=== PATIENT | male | born 1965 | race Asian ===

== ENCOUNTER 2018-02-25 08:37 | Observation (INO) | payer OTHER ==
[~2018-02-25] VITALS: Ht 154.9 cm; Wt 60.8 kg
[2018-02-25 08:58] LABS: ABSOLUTE BASOPHILS 0.1 thou/uL (0.0-0.2); ABSOLUTE EOSINOPHILS 0.1 thou/uL (0.0-0.7); ABSOLUTE LYMPHOCYTES 1.4 thou/uL (0.8-5.3); ABSOLUTE MONOCYTES 0.6 thou/uL (0.0-1.2); ABSOLUTE NEUTROPHILS 4.2 thou/uL (1.6-8.1); BASOPHILS 0.9 %; EOSINOPHILS 1.6 %; HEMOGLOBIN 12.8 gm/dL (14.0-18.0); MCH 29.6 pg (26.0-34.0); MCHC 32.7 g/dL (28.0-37.0); MCV 90.3 fL (80.0-100.0); MPV 6.9 fl. (7.2-11.1); NUCLEATED RBCS 0 /100WBC; PLATELET COUNT* 242 thou/uL (150-400); POLYS 66.5 %; RBC 4.32 mil/uL (4.50-6.00); RDW-CV 15.7 % (10.5-14.5); WBC 6.4 thou/uL (4.0-11.0)
[2018-02-25] MEDS ORDERED: ASPIR 8181 MG PO (09:00)
[2018-02-25] MEDS ORDERED: LIPITOR80 MG PO (09:00)
[2018-02-25] MEDS ORDERED: CARVEDILOL3.125 MG PO (09:00)
[2018-02-25] MEDS ORDERED: PLAVIX 75 MG TA75 M1 PO (09:00)
[2018-02-25] MEDS ORDERED: LISINOPRIL2.5 MG PO (09:01)
[2018-02-25 09:09] LABS: APTT 27.1 Seconds (25.0-31.3)
[2018-02-25 09:14] LABS: CALCIUM 9.1 mg/dL (8.5-10.1); CREATININE 1.1 mg/dL (0.6-1.3)
[2018-02-25 09:25] LABS: ALBUMIN 3.6 g/dL (3.4-5.0); CK-MB MASS 1.6 ng/mL (<0.5-3.6); TOTAL BILIRUBIN 0.5 mg/dL (<0.1-1.0); TOTAL PROTEIN 7.4 g/dL (6.4-8.2); TROPONIN-I LEVEL 0.13 ng/mL (<0.06)
[2018-02-25 10:47] VITALS: BP 122/80
[2018-02-25 11:01] VITALS: BP 118/84
[2018-02-25 16:00] VITALS: BP 114/77
--- NOTE | 2018-02-25 17:21 | 2DMMODE ---
[place] [address] 2 D/M-MODE ECHOCARDIOGRAM Name: LEAHNIK Room: [address] IN [facility]#: [id number] Admission: 02/25/18 Attend Phys: Xin George, Discharge: Date of : 61 Date of Service: 02/25/18 1721 Report #: [id number] THIS REPORT FOR: //name// APPROVED REPORT Study performed: 02/25/2018 14:10:29 EXAM: Comprehensive 2D, Doppler, and color-flow Echocardiogram Patient Location: In-Patient Room #: [facility] Status: routine BSA: 1.59 HR: 73 bpm BP: 118/84 mmHg Rhythm: NSR Other Information Study Quality: Good Indications Heart failure 2D Dimensions LVEF(%): 48.23 (>50%) IVSd: 10.97 (7-11mm) LVOT Diam: 20.12 (18-24mm) LVDd: 55.95 mm PWd: 8.36 (7-11mm) Ascending Ao: 30.74 (22-36mm) LVDs: 42.18 (25-40mm) Aortic Root: 30.22 mm Mittal's LVEF: 48.23 % Volumes Left Atrial Volume (Systole) LA ESV Index: 42.20 mL/m2 Aortic Valve AoV Peak Rashard.: 1.20 m/s AO Peak Gr.: 5.74 mmHg LVOT Max P.28 mmHg AO Mean Gr.: 3.22 mmHg LVOT Mean P.06 mmHg LVOT Max V: 0.75 m/s AO V2 VTI: 20.18 cm LVOT Mean V: 0.47 m/s KAYLIN (VTI): 2.04 cm2 LVOT V1 VTI: 12.97 cm Mitral Valve E/A Ratio: 3.86 [place] [address] 2 D/M-MODE ECHOCARDIOGRAM Name: LEAH,NIK Room: [address] IN .R.#: [id number] Admission: 02/25/18 Attend Phys: Xin George, Discharge: Date of : 61 Date of Service: 02/25/18 1721 Report #: [id number] MV Decel. Time: 134.00 ms MV E Max Rashard.: 1.43 m/s MV PHT: 38.86 ms MVA (PHT): 5.66 cm2 TDI E/Lateral E': 14.30 E/Medial E': 15.89 Medial E' Rashard.: 0.09 m/s Lateral E' Rashard.: 0.10 m/s Pulmonary Valve PV Peak Rashard.: 0.86 m/s PV Peak Gr.: 2.95 mmHg Tricuspid Valve TR Peak Gr.: 30.34 mmHg RVSP: 35.00 mmHg Left Ventricle The left ventricle is normal size. Regional wall motion abnormalities are noted. There is normal left ventricular wall thickness. Left ventricular systolic function is borderline. LVEF is 40-45%. Transmitral Doppler flow pattern suggests restrictive physiology. Right Ventricle The right ventricle is normal size. The right ventricular systolic function is normal. Atria Left atrium is moderately dilated. The right atrium size is normal. Aortic Valve The aortic valve is normal in structure. There is akinesis of the basal inferior wall and inferolateral wall. No aortic regurgitation is present. There is no aortic valvular stenosis. Mitral Valve The mitral valve is normal in structure. Moderate to severe mitral regurgitation No evidence of mitral valve stenosis. Tricuspid Valve The tricuspid valve is normal in structure. Mild tricuspid regurgitation. The RVSP is 35-40 mmHg. Pulmonic Valve The pulmonary valve is normal in structure[place] [address] 2 D/M-MODE ECHOCARDIOGRAM Name: NIK LYNN Room: [address] IN .R.#: [id number] Admission: 02/25/18 Attend Phys: Xin George, Discharge: Date of : 61 Date of Service: 02/25/18 1721 Report #: [id number] regurgitation. Great Vessels The aortic root is normal in size. IVC is normal in size and collapses with >50% inspiration Pericardium There is no pericardial effusion. <Conclusion> The left ventricle is normal size. There is normal left ventricular wall thickness. Left ventricular systolic function is borderline. LVEF is 40-45%. Transmitral Doppler flow pattern suggests restrictive physiology. Left atrium is moderately dilated. Moderate to severe mitral regurgitation Mild tricuspid regurgitation. The RVSP is 35-40 mmHg. There is akinesis of the basal inferior wall and inferolateral wall. <ELECTRONICALLY SIGNED> By: Benji Aragon MD, FACC 02/25/18 172 20 20 Benji Aragon MD, FACC /INF
[2018-02-25 20:23] VITALS: BP 97/68
[2018-02-25 23:32] VITALS: BP 101/68
[2018-02-26 03:55] VITALS: BP 94/63
[2018-02-26 05:28] LABS: HEMATOCRIT 39.4 % (42.0-52.0); HEMOGLOBIN 12.8 gm/dL (14.0-18.0); MCH 29.5 pg (26.0-34.0); MCHC 32.5 g/dL (28.0-37.0); MCV 90.7 fL (80.0-100.0); MPV 7.2 fl. (7.2-11.1); RBC 4.34 mil/uL (4.50-6.00); RDW-CV 15.5 % (10.5-14.5); WBC 4.6 thou/uL (4.0-11.0)
[2018-02-26 06:07] LABS: ALBUMIN 3.3 g/dL (3.4-5.0); CALCIUM 9.3 mg/dL (8.5-10.1); CREATININE 1.1 mg/dL (0.6-1.3); MAGNESIUM 2.2 mg/dL (1.8-2.4); POTASSIUM 4.3 mmol/L (3.5-5.1); TOTAL BILIRUBIN 0.6 mg/dL (<0.1-1.0); TOTAL PROTEIN 6.6 g/dL (6.4-8.2); TROPONIN-I LEVEL 0.12 ng/mL (<0.06)
[2018-02-26 07:57] VITALS: BP 93/64
--- NOTE | 2018-02-26 09:11 | EKG ---
[place] [address] ELECTROCARDIOGRAM REPORT Name: NIK LYNN Room: [address] IN [facility].#: [id number] Admission: 02/25/18 Attend Phys: Xin George MD Discharge: Date of : 61 Report #: [id number] THIS REPORT FOR: //name// [facility] ED Test Date: 2018-02-25 Test Time: 08:44:59 Pat Name: NIK LYNN Department: Room: Gender: Marble Worker: JAZMIN : 1965 Requested By: Yvon Hobbs Order Number: [id number] MD: Benji Aragon Measurements Intervals [place] Rate: 86 P: 63 SD: 153 QRS: 80 QRSD: 92 T: 44 QT: 363 QTc: 434 Interpretive Statements Sinus rhythm RSR' in V1 or V2, probably normal variant ST elev, probable normal early repol pattern No previous ECG available for comparison Electronically Signed On 02-26-2018 9:11:22 CDT by Benji Aragon [email or web address] <ELECTRONICALLY SIGNED> By: Benji Aragon MD, [facility] [id number] 3 3 Benji Aragon MD, [facility] /EPI
--- NOTE | 2018-02-26 09:14 | EKG ---
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
--- NOTE | 2018-02-26 09:17 | EKG ---
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: CKLOTZ : 1965 Requested By: Yvon Hobbs Order Number: [id number] Sarahi MD: Benji Aragon Measurements Intervals [place] Rate: 76 P: 55 VA: 148 QRS: 62 QRSD: 92 T: 1 QT: 390 QTc: 439 Interpretive Statements Sinus rhythm Borderline low voltage, extremity leads Consider left ventricular hypertrophy ST elev, probable normal early repol pattern No previous ECG available for comparison Electronically Signed On 02-26-2018 9:16:59 CDT by Benji Aragon [email or web address] <ELECTRONICALLY SIGNED> By: Benji Aragon MD, [facility] 02/26/18 0916 0134 0134 Benji Aragon MD, [facility] /EPI
[2018-02-26] MEDS ORDERED: PREDNISONE 20 M20 MG PO (10:32)
[2018-02-26] MEDS ORDERED: APAP650 PO (10:32)
[2018-02-26] MEDS ORDERED: TRAMADOL 50 MG50 MG PO (10:32)
[2018-02-26 11:50] VITALS: BP 86/49
[2018-02-26 15:28] VITALS: BP 86/49
[2018-02-26 15:46] VITALS: BP 86/49
--- NOTE | 2018-03-03 12:50 | CON ---
[address] [address] CONSULTATION Name: NIK LYNN Room: [address] Shashi Connors#: [id number] Admission: 02/25/18 Attend Phys: Xin George MD Discharge: 02/26/18 Date of : 61 Report #: [id number] THIS REPORT FOR: //name// CC: [facility] physician/PCP Xin George DATE OF SERVICE: 02/25/2018 CARDIOLOGY CONSULTATION INDICATION: Recent myocardial infarction with persistent chest pain and elevated troponin. HISTORY OF PRESENT ILLNESS: The patient is a 52-year-old [place] gentleman who speaks limited Slovenian. He presented with complaints of shortness of breath and chest pain. He apparently had a recent myocardial infarction and was treated at [facility] in [place], [place]. He had 2 drug-eluting stents placed to the circumflex per the card that he has in his wallet. Other data is not available regarding his catheterization and further treatment at that time. He presents with complaints of pain that began in his chest and was in his right shoulder and arm as well. The chest pain he suggests has resolved, but he still has shoulder and arm pain, especially with movement. He is not having obvious orthopnea. He does not appear to be uncomfortable at this time. PAST MEDICAL HISTORY: Includes: 1. Coronary artery disease with recent percutaneous coronary intervention. 2. Hyperlipidemia. 3. Hypertension. FAMILY HISTORY: Noncontributory. SOCIAL HISTORY: The patient recently quit smoking, but drinks alcohol occasionally. HOME MEDICATIONS: Carvedilol 3.125 mg p.o. b.i.d., aspirin 81 mg p.o. q. day, atorvastatin 80 mg p.o. at bedtime, Plavix 75 mg p.o. daily, lisinopril 2.5 mg p.o. q.p.m. PHYSICAL EXAMINATION: VITAL SIGNS: Blood pressure 118/84, pulse 82 and regular. GENERAL: This is a pleasant male. He does not appear to be in distress. HEENT: Extraocular muscles intact. Mucous membranes moist. NECK: Shows no jugular venous distention. I do not appreciate carotid bruit. CHEST: Reveals clear lung lopez without wheezes or rales. CARDIOVASCULAR: Reveals a regular rhythm with normal S1 and S2. I do not appreciate [place] [address] CONSULTATION Name: NIK LYNN [address] [id number] Admission: 02/25/18 Attend Phys: Xin George MD Discharge: 02/26/18 Date of : 61 Report #: [id number] ABDOMEN: Reveals normal bowel sounds. The abdomen is soft, nontender. EXTREMITIES: Shows no edema. Peripheral pulses 2+ and palpable. SKIN: Warm and dry. A 12-lead EKG shows sinus rhythm with some early repolarization, but no acute ST or T-wave abnormalities. I do not see any pathologic Q-waves. LABORATORY DATA: Labs are reviewed. Sodium 140, potassium 4.0, chloride 104, bicarbonate 29, BUN 17, creatinine 1.1, serum glucose 121. Troponin initially 0.13. Followup troponin pending. NT-proBNP 676. White blood cell count 6.4, hemoglobin 12.8, platelet count 242,000. CTA PE protocol shows cardiomegaly, but no evidence of pulmonary embolus. Chest x-ray shows the presence of atherosclerosis in the aorta, but no acute cardiopulmonary abnormalities noted. IMPRESSION AND RECOMMENDATIONS: 1. Recent myocardial infarction. The patient is on dual antiplatelet therapy in the form of aspirin and Plavix. I would continue this for the time being. I do not see any evidence of ST elevation on EKG. I would like to followup troponin. An echocardiogram has been ordered and is pending. Outside records have been requested. Continue home medications as outlined above. 2. Hyperlipidemia. Continue atorvastatin 80 mg nightly. 3. Apparent hypertension. Blood pressure adequately controlled on low doses of NINA inhibitor and beta celina. 4. Possible congestive heart failure by regimen and noninvasive reports. Echocardiogram ordered and pending. We will follow. <ELECTRONICALLY SIGNED> By: Benji Aragon MD, FACC 03/03/18 1250 1515 1930Microbinson Aragon MD, FACC /nt
== END 2018-02-26 15:45 | disposition home or self-care (01) ==
LOC: M.ERS 08:37 → M.2W 09:46 → M.TBA-ER 09:46 → M.2W 10:59
PROVIDERS: Family Medicine; ADMIT Internal Medicine
DX: R07.89 Other chest pain (principal); I25.10 Atherosclerotic heart disease of native coronary artery without angina pectoris; M54.2 Cervicalgia; R79.89 Other specified abnormal findings of blood chemistry; E78.5 Hyperlipidemia, unspecified; I10 Essential (primary) hypertension; I25.2 Old myocardial infarction; Z87.891 Personal history of nicotine dependence; Z79.02 Long term (current) use of antithrombotics/antiplatelets; Z79.82 Long term (current) use of aspirin; Z95.5 Presence of coronary angioplasty implant and graft; Z72.89 Other problems related to lifestyle

== ENCOUNTER 2018-03-04 13:43 | Emergency (ER) | payer OTHER ==
[~2018-03-04] VITALS: Ht 152.4 cm; Wt 57.0 kg
[~2018-03-04 13:43] MED LIST: APAP650 PO; ASPIR 8181 MG PO; CARVEDILOL3.125 MG PO; LIPITOR80 MG PO; LISINOPRIL2.5 MG PO; PLAVIX 75 MG TA75 M1 PO; PREDNISONE 20 M20 MG PO; TRAMADOL 50 MG50 MG PO
[2018-03-04 14:07] LABS: ABSOLUTE BASOPHILS 0.1 thou/uL (0.0-0.2); ABSOLUTE EOSINOPHILS 0.1 thou/uL (0.0-0.7); ABSOLUTE LYMPHOCYTES 1.9 thou/uL (0.8-5.3); ABSOLUTE MONOCYTES 0.5 thou/uL (0.0-1.2); ABSOLUTE NEUTROPHILS 4.7 thou/uL (1.6-8.1); BASOPHILS 0.8 %; EOSINOPHILS 1.5 %; HEMATOCRIT 45.7 % (42.0-52.0); MCH 29.9 pg (26.0-34.0); MCHC 32.8 g/dL (28.0-37.0); MCV 91.2 fL (80.0-100.0); MONOCYTES 6.6 %; MPV 7.2 fl. (7.2-11.1); NUCLEATED RBCS 0 /100WBC; PLATELET COUNT* 208 thou/uL (150-400); POLYS 65.1 %; RBC 5.02 mil/uL (4.50-6.00); RDW-CV 15.9 % (10.5-14.5); WBC 7.3 thou/uL (4.0-11.0)
[2018-03-04 14:15] LABS: APTT 27.2 Seconds (25.0-31.3); PROTIME 10.1 Seconds (9.20-11.50)
[2018-03-04 14:37] LABS: CALCIUM 9.4 mg/dL (8.5-10.1); CREATININE 1.1 mg/dL (0.6-1.3); POTASSIUM 3.8 mmol/L (3.5-5.1)
[2018-03-04 14:42] LABS: ALBUMIN 3.8 g/dL (3.4-5.0); CK-MB MASS 1.3 ng/mL (<0.5-3.6); MAGNESIUM 2.3 mg/dL (1.8-2.4); TOTAL BILIRUBIN 0.5 mg/dL (<0.1-1.0); TOTAL PROTEIN 7.8 g/dL (6.4-8.2); TROPONIN-I LEVEL 0.09 ng/mL (<0.06)
[2018-03-04 14:51] VITALS: BP 110/87
--- NOTE | 2018-03-04 15:01 | EKG ---
[place] [address] ELECTROCARDIOGRAM REPORT Name: LEAHNIK Room: [facility]#: [id number] Admission: 03/04/18 Attend Phys: Discharge: 03/04/18 Date of : 61 Report #: [id number] THIS REPORT FOR: //name// [facility] ED Test Date: 2018-03-04 Test Time: 13:53:12 Pat Name: NIK LYNN Department: Room: Gender: M Heel Burnisher: FLORIAN : 1965 Requested By: Yvon Hobbs Order Number: [id number] MD: Benji Aragon Measurements Intervals [place] Rate: 80 P: 69 GA: 141 QRS: 71 QRSD: 92 T: -9 QT: 385 QTc: 445 Interpretive Statements Sinus rhythm Probable left atrial enlargement RSR' in V1 or V2, probably normal variant Borderline T abnormalities, inferior leads Compared to ECG 02/26/2018 01:34:01 RSR' in V1 or V2 now present T-wave abnormality now present ST (T wave) deviation no longer present Electronically Signed On 03-04-2018 15:01:17 CDT by Benji Aragon [email or web address] <ELECTRONICALLY SIGNED> By: Benji Aragon MD, FAC 03/04/18 1501 1353 1353 Benji Aragon MD, FAC /EPI
== END 2018-03-04 14:52 | disposition home or self-care (01) ==
LOC: M.ERS 13:43
PROVIDERS: Family Medicine
DX: M25.511 Pain in right shoulder (principal); I10 Essential (primary) hypertension

== ENCOUNTER 2018-03-22 12:51 | Emergency (ER) | payer OTHER ==
[~2018-03-22] VITALS: Ht 154.9 cm; Wt 59.9 kg
[2018-03-22] MEDS ORDERED: ULTRAM 50MG TAB50 MG PO (13:15)
[2018-03-22] MEDS ORDERED: INDOMETHACIN 2525 MG PO (13:15)
[2018-03-22 13:24] VITALS: BP 127/75
--- NOTE | 2018-03-23 14:42 | EKG ---
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: ERICK : 1965 Requested By: Yvon Hobbs Order Number: [id number] Reading MD: Marin Cortez Measurements Intervals [place] Rate: 97 P: 59 LA: 149 QRS: 59 QRSD: 105 T: 25 QT: 352 QTc: 447 Interpretive Statements Sinus rhythm ST elev, probable normal early repol pattern Compared to ECG 03/04/2018 13:53:12 ST (T wave) deviation now present T-wave abnormality no longer present Electronically Signed On 03-23-2018 14:42:19 CDT by Marin Cortez [email or web address] <ELECTRONICALLY SIGNED> By: Marin Cortez MD, [facility] 03/23/18 1442 130 1302 Marin Cortez MD, [facility] /EPI
== END 2018-03-22 13:25 | disposition home or self-care (01) ==
LOC: M.ERS 12:51
DX: M25.511 Pain in right shoulder (principal); E78.5 Hyperlipidemia, unspecified; I10 Essential (primary) hypertension

== ENCOUNTER 2018-03-26 01:59 | Inpatient (IN) | payer OTHER ==
[~2018-03-26] VITALS: Ht 165.1 cm; Wt 60.3 kg
[2018-03-26] VITALS (25 sets, daily range): BP systolic 90–922; BP diastolic 54–85
[~2018-03-26 01:59] MED LIST changes: +INDOMETHACIN 2525 MG PO; +ULTRAM 50MG TAB50 MG PO
[2018-03-26 02:27] LABS: ABSOLUTE BASOPHILS 0.1 thou/uL (0.0-0.2); ABSOLUTE EOSINOPHILS 0.5 thou/uL (0.0-0.7); ABSOLUTE LYMPHOCYTES 3.7 thou/uL (0.8-5.3); ABSOLUTE MONOCYTES 1.2 thou/uL (0.0-1.2); ABSOLUTE NEUTROPHILS 6.8 thou/uL (1.6-8.1); BASOPHILS 0.7 %; EOSINOPHILS 4.4 %; LYMPHOCYTES 30.2 %; MCH 29.2 pg (26.0-34.0); MCHC 31.7 g/dL (28.0-37.0); MCV 92.1 fL (80.0-100.0); MONOCYTES 9.4 %; MPV 7.4 fl. (7.2-11.1); NUCLEATED RBCS 0 /100WBC; PLATELET COUNT* 244 thou/uL (150-400); POLYS 55.3 %; RBC 4.78 mil/uL (4.50-6.00); RDW-CV 16.5 % (10.5-14.5); WBC 12.3 thou/uL (4.0-11.0)
[2018-03-26 02:35] LABS: CALCIUM 8.9 mg/dL (8.5-10.1); CREATININE 1.2 mg/dL (0.6-1.3); POTASSIUM 3.9 mmol/L (3.5-5.1)
[2018-03-26 02:38] LABS: PROTIME 9.6 Seconds (9.20-11.50)
[2018-03-26 02:46] LABS: ALBUMIN 3.8 g/dL (3.4-5.0); TOTAL BILIRUBIN 0.7 mg/dL (<0.1-1.0); TOTAL PROTEIN 7.8 g/dL (6.4-8.2); TROPONIN-I LEVEL 0.11 ng/mL (<0.06)
--- NOTE | 2018-03-26 06:47 | NUR ---
PATIENT ARRIVED ON UNIT AT 0430. ALERT AND ORIENTED TIMES FOUR. SEE PINSETTER MECHANIC AUTOMATIC. BIPAP IN PLACE AT THIS TIME. O2 AT 100%. SCD'S IN PLACE. IV PATNET TO FLUSHES. NO COMPLAINTS OF PAIN OR DISCOMFORT NOTED. BERMAN IN PLACE AND DRAINING TO DEPENDENT DRAINAGE, CLEAR, YELLOW URINE. PATIENT REMOVED BIPAP AT APPROX 0630. RT NOTIFIED. SATURATION AT 90% ON RA. 2L NC PLACED. UP TO 95% ON 2LNC
--- NOTE | 2018-03-26 08:00 | NUR ---
0730 ASSUMED CARE OF PATIENT. PLEASE SEE DOCUMENTED ASSESSMENT. PT IS ON 2LPM NASAL CANNULA. ADMITS TO SLIGHT HEADACHE BUT DENIES CHEST PAIN. PT FALLS ASLEEP AFTER QUESTIONING. CARDIOLOGY NURSE HERE TO SEE PATIENT.NSR
--- NOTE | 2018-03-26 09:48 | NUR ---
[address] KEARNS TO SEE PATIENT. ORDERS NOTED.
[2018-03-26 10:12] LABS: MAGNESIUM 1.8 mg/dL (1.8-2.4)
--- NOTE | 2018-03-26 12:34 | NUR ---
PT REMAINS NPO,AWAITING ABDOMINAL ULTRASOUND
--- NOTE | 2018-03-26 13:09 | EKG ---
[place] [address] ELECTROCARDIOGRAM REPORT Name: NIK LYNN Room: [address] ADM IN .R.#: [id number] Admission: 03/26/18 Attend Phys: Xin George MD Discharge: Date of : 61 Report #: [id number] THIS REPORT FOR: //name// [facility] ED Test Date: 2018-03-26 Test Time: 02:06:42 Pat Name: NIK LYNN Department: Room: Gender: M Prestidigitator: ARLEEN : 1965 Requested By: Sammy Rivera Order Number: [id number] MD: Esdras Mcguire Measurements Intervals [place] Rate: 149 P: 65 DC: 221 QRS: 98 QRSD: 97 T: -32 QT: 268 QTc: 422 Interpretive Statements Sinus tachycardia Borderline right axis deviation Borderline low voltage, extremity leads Nonspecific ST depression Artifact in lead(s) I,II,III,aVR,aVL,aVF,V4 and baseline wander in lead(s) I,aVR,aVL,V1,V2,V3,V4 Compared to ECG 03/22/2018 13:02:42 Sinus rate has increased ST (T wave) deviation still present Electronically Signed On 03-26-2018 13:08:49 CDT by Esdras Mcguire [email or web address] <ELECTRONICALLY SIGNED> By: Esdras Mcguire MD, [facility] 03/26/18 1308 5 0206 Esdras Mcguire MD, [facility] /EPI
--- NOTE | 2018-03-26 13:10 | EKG ---
[place] [address] ELECTROCARDIOGRAM REPORT Name: LEAHNIK Room: [address] ADM IN M.R.#: [id number] Admission: 03/26/18 Attend Phys: Xin George MD Discharge: Date of : 61 Report #: [id number] THIS REPORT FOR: //name// [facility] ED Test Date: 2018-03-26 Test Time: 02:34:58 Pat Name: NIK LYNN Department: Room: [address] Gender: M Household Coordinator: : 1965 Requested By: Sammy Rivera Order Number: [id number] Sarahi MD: Esdras Mcguire Measurements Intervals [place] Rate: 117 P: 60 SC: 143 QRS: 80 QRSD: 98 T: 6 QT: 328 QTc: 458 Interpretive Statements Sinus tachycardia Abnormal R-wave progression, early transition Nondiagnostic inferior Q's Compared to ECG 03/22/2018 13:02:42 ST (T wave) deviation no longer present Electronically Signed On 03-26-2018 13:09:51 CDT by Esdras Mcguire [email or web address] <ELECTRONICALLY SIGNED> By: Esdras Mcguire MD, [facility] 03/26/18 1309 0234 0234 Esdras Mcguire MD, [facility] /EPI
--- NOTE | 2018-03-26 14:14 | NUR ---
TO TRACK INSPECTOR PER BED
--- NOTE | 2018-03-26 14:21 | CON ---
[address] [address] CONSULTATION Name: NIK LYNN Room: [address] ADM IN M.R.#: [id number] Admission: 03/26/18 Attend Phys: Xin George MD Discharge: Date of : 61 Report #: [id number] THIS REPORT FOR: //name// CC: [facility] physician/PCP Xin George REQUESTING PHYSICIAN: Girma Hamm DO REASON FOR CONSULTATION: Shortness of breath, respiratory distress. DISCUSSION: This is a very pleasant 52-year-old man with a history of tobacco abuse and known coronary artery disease. Presented to the Emergency Department early this morning with complaints of chest pain and shortness of breath. There is a language barrier, which made it difficult for the ED physician as well. Was complaining of chest pain. Was evaluated in the ER. Does not felt to have had a STEMI. Was initially placed on BiPAP. X-ray and CT angiogram were consistent with pulmonary edema. No pulmonary emboli were noted. Subsequently, transferred over to the Intensive Care Unit. Was able to come off the BiPAP, is now on nasal cannula. History is difficult to obtain again because of language barrier. He is feeling better at this time. He still points to his mid chest and right shoulder area as cause of pain. Apparently did have stents placed in January in [place], [place]. Had 2 drug-eluting stents placed, primarily in the circumflex. Has been on Plavix and aspirin. He was seen earlier in February when he presented with complaints of chest discomfort. Was seen by Cardiology at that time. EF was mildly decreased at 40-45%. He did have nzvwfdjy-xu-ubpwex mitral regurgitation noted at that time. He is now on O2 at 2 liters. Staff has noted breath sounds somewhat coarse. He has had some cough, though they have not seen any sputum. It does not appear that he is on any inhalers at home. He is not on oxygen. He denies history of tuberculosis. He is from [place]. It is not clear how long he has been in this country. He does have a history of tobacco abuse. He quit smoking and drinking 3-4 months ago. He has a history of heart disease as noted. Also, has a history of dyslipidemia and hypertension. MEDICATIONS: Reportedly his home medications are Coreg, Plavix, lisinopril, baby aspirin and atorvastatin. Unknown how compliant he has been with this regimen. SOCIAL HISTORY: Former smoker as noted. No longer drinks alcohol best I can ascertain. It is not clear if he is still working, [place] [address] CONSULTATION Name: NIK LYNN Room: [address] IN [facility]#: [id number] Admission: 03/26/18 Attend Phys: Xin George MD Discharge: Date of : 61 Report #: [id number] on roofs, perhaps involving the ventilation syndrome (again the language barrier). FAMILY HISTORY: Unable to ascertain from the family. REVIEW OF SYSTEMS: Difficult to obtain from the patient. He is acknowledging discomfort at this time. May have some shortness of breath as well. Discomfort mid chest, right shoulder area. He does acknowledge that he has had some vomiting. No pain in his abdomen. Apparently does not feel quite right to him. PHYSICAL EXAMINATION: GENERAL: We have a thin Martiniquais male. He is resting in bed on O2 via nasal cannula at 2 liters. O2 saturations are in the high 90s. He is alert, cooperative. He does not appear in any acute distress. He is in no respiratory distress. His respirations are nonlabored. He is speaking in full sentences. HEENT: Head is normocephalic. Sclerae are nonicteric. NECK: No JVD is noted. No cervical adenopathy. No supraclavicular adenopathy. Does not appear to be reproducing any pain with palpation over his anterior chest wall over the shoulder area. HEART: Regular rate. Grade 1/6 systolic murmur. No S3 is heard. LUNGS: Reveal breath sounds to be just mildly diminished. Breath sounds are coarse. He does have a few rhonchi heard bilaterally. No CVA tenderness. ABDOMEN: Soft. Does not appear to have any tenderness, guarding. No hepatosplenomegaly. No inguinal adenopathy. EXTREMITIES: He has no clubbing. Lower extremities are negative for edema. SKIN: Warm and dry. LABORATORY AND X-RAY FINDINGS: I did have a portable chest film done earlier this morning followed by a CT angiogram of his chest. He does have pulmonary vascular congestion noted. No pulmonary emboli were noted. Small pleural effusions. On his lab, BUN is 15, creatinine of 1.0, potassium is 4.0. His bicarbonate was 34. His total bilirubin was 0.7, AST 38, ALT 95. Lipase 847. Troponin 0.11. ProBNP 694. Albumin 3.8. INR was normal. D-dimer was 1.6. White blood cell count 12,300, hemoglobin 14, hematocrit 44, platelets 244,000. Echocardiogram done a month ago when he was here for evaluation of his chest discomfort, LV was normal in size with regional wall abnormalities noted. EF 40-45%. Also had evidence of restrictive physiology. RV was normal. He did have efavvldm-oc-ejfduq mitral regurgitation noted. IMPRESSION: 1. Complaints of intermittent chest pain, shortness of breath. X-ray findings are all consistent with pulmonary edema. His mitral regurgitation may be exacerbating this. Clinically, doubt pneumonia. 2. History of tobacco abuse. Reportedly, has quit several months ago. May have some underlying obstructive lung disease. 3. Elevated lipase. It was marginally elevated last [place] [address] CONSULTATION Name: NIK LYNN Room: [address] IN [facility].#: [id number] Admission: 03/26/18 Attend Phys: Xin George MD Discharge: Date of : 61 Report #: [id number] Significance not clear. He does have some mild elevation of his transaminases. However, alkaline phosphatase is normal. Question if there is intra-abdominal process, which may be resulting in referred discomfort. 4. Known coronary artery disease. Status post stent placement in January of this year in [place], [place]. Does have decrease in EF as well as mitral regurgitation noted. RECOMMENDATIONS: 1. Wean O2 as able. 2. Agree with starting nebulizer treatments this morning. 3. We will also obtain abdominal ultrasound. Also, follow up with an amylase. Follow up transaminases in the morning as well. <ELECTRONICALLY SIGNED> By: Amada Cannon MD 03/26/18 1421 1023 MD usama Snyder
--- NOTE | 2018-03-26 15:21 | NUR ---
1510 RETURNED FROM CUSTOMER SUCCESS INTERN PER BED WITH [employer]NX CLOSURE TO RIGHT FEMOAL ARTERY. SEE POST CATH CHARTING.NSR. IVF AT 100 ML/HOUR. INSTRUCTED ON BEDREST
--- NOTE | 2018-03-26 15:23 | CARD ---
[address] [address] CARDIAC CATH REPORT Name: NIK LYNN Room: [address] ADM IN M.R.#: [id number] Admission: 03/26/18 Attend Phys: Xin George MD Discharge: Date of : 61 Report #: [id number] THIS REPORT FOR: //name// APPROVED REPORT Study performed: 03/26/2018 14:04:46 Patient Details Patient Status: ED Room #: The patient is a 52 year-old male Event Personnel Esdras Mcguire Workforce Development Program Director, Stefania Morrison, Cass Blanco, Guillermina Medrano Monitor Procedures Performed Art Access - R femoral artery* Left Heart Cath w/or w/o Coronaries [id number] [facility] Indication Heart failure, Chest pain Risk Factors Hypercholesterolemia Previous Procedures/Diagnoses Previous PCI, Previous IA Procedure Narrative The patient was brought urgently to the Cardiac Catheterization Laboratory and was prepped and draped in a sterile manner. The right femoral was infiltrated with 2% Lidocaine subcutaneous anesthesia. A 6fr Ultimum Sheath sheath was inserted into the right femoral artery. Coronary angiography was performed using coronary diagnostic catheters. The right coronary system was accessed and visualized with a Diagnostic catheter. The left coronary system was accessed and visualized with a Diagnostic catheter. The left ventricle was accessed and visualized with a Diagnostic catheter. Left ventricular/Aortic Valve gradient assessed via catheter pullback. Pre-demployment femoral angiogram was performed . Closure device was deployed with a Fr Mynx 6Fr/7Fr. The patient tolerated the procedure well and there were no complications associated with the procedure. There [place] [address] CARDIAC CATH REPORT Name: NIK LYNN Room: [address]#: [id number] Admission: 03/26/18 Attend Phys: Xin George MD Discharge: Date of : 61 Report #: [id number] Intraoperative Conscious Sedation Sedation start time: 1428 Case end Time: 1451 Fentanyl 25 mcg Versed 2 mg Dose: 279 mGy Contrast Type and Amount: Visipaque 90 ml Coronary Angiography The patient's coronary anatomy is right dominant. Diagnostic Cath Left Main 0% narrowing LAD 30% proximal and mid LAD narrowing Circumflex 100% proximal in-stent occlusion Right Coronary Dominant vessel with 30% mid vessel narrowing Left Ventriculography Left Ventriculography was not performed. Hemodynamics The aortic pressure is 83/53 mmHg with a mean of 67 mmHg. The left ventricular pressure is 79/9 mmHg with a mean of mmHg. The left ventricular end diastolic pressure is 10 mmHg. There was no gradient across the aortic valve upon pullback. Conclusion #1 coronary artery disease characterized by the following: A 30% proximal and mid LAD narrowing B 100% proximal circumflex in-stent occlusion without evidence of collateral filling of the distal circumflex C dominant right coronary artery with 30% mid vessel narrowing #2 mild systemic hypotension with low normal left ventricular end-diastolic pressure at rest Recommendations Daily ASA with Plavix for at least one year Cardiac Risk Reduction Program [address] [address] CARDIAC CATH REPORT Name: NIK LYNN Room: [address] IN M.R.#: [id number] Admission: 03/26/18 Attend Phys: Xin George MD Discharge: Date of : 61 Report #: [id number] Diagnostic Cath Approved by: Esdras Mgcuire MD Date/Time: 03/26/18 at 1520 hrs. <ELECTRONICALLY SIGNED> By: Esdras Mcguire MD, FACC 03/26/18 1522 1522 1522Jokera Mcguire MD, FACC /INF
--- NOTE | 2018-03-26 16:50 | NUR ---
LATE ENTRY 1356 DR SCHAFER TO SEE PATIENT AND WILL HAVE CARDIAC CATH TODAY. PT EXPRESSED UNDERSTANDING OF PROCEDURE AND SIGNED CONSENT
--- NOTE | 2018-03-26 16:51 | NUR ---
PATIENT INFORMED THAT FRIENDS WILL COME TONIGHT AND THAT THEY HAVE HIS WALLET AND PHONE. PT IS REASSURED
--- NOTE | 2018-03-26 17:10 | NUR ---
DR SCHAFER TO SE PATIENT
--- NOTE | 2018-03-26 17:24 | NUR ---
PATIENT MAKING ROGRESS TOWARDS GOALS. SEEN BY CONSULTS. CARDIAC CATH COMPLETED WITH REASSESSMENTS CHARTED. REMAINS ON 2LPM NASAL CANNULA OXYGEN. PAIN CONTROLLED. DIET RESUMED. VSS. DIURESED TODAY. FRIENDS WILL VISIT [facility] AND THEY HAVE BELONGINGS THAT PATIENT WAS CONCERNED ABOUT
[2018-03-27] VITALS (8 sets, daily range): BP systolic 91–107; BP diastolic 56–77
[2018-03-27 02:56] LABS: ABSOLUTE LYMPHOCYTES 0.9 thou/uL (0.8-5.3); ABSOLUTE MONOCYTES 0.1 thou/uL (0.0-1.2); ABSOLUTE NEUTROPHILS 6.1 thou/uL (1.6-8.1); BASOPHILS 0.2 %; HEMATOCRIT 39.2 % (42.0-52.0); HEMOGLOBIN 12.6 gm/dL (14.0-18.0); LYMPHOCYTES 12.7 %; MCH 28.7 pg (26.0-34.0); MCHC 32.3 g/dL (28.0-37.0); MCV 88.9 fL (80.0-100.0); MONOCYTES 1.5 %; MPV 7.3 fl. (7.2-11.1); NUCLEATED RBCS 0 /100WBC; PLATELET COUNT* 207 thou/uL (150-400); POLYS 85.6 %; RDW-CV 15.9 % (10.5-14.5); WBC 7.2 thou/uL (4.0-11.0)
[2018-03-27 03:09] LABS: ALBUMIN 3.3 g/dL (3.4-5.0); DIRECT BILIRUBIN 0.1 mg/dL (<0.1-0.3); TOTAL BILIRUBIN 0.6 mg/dL (<0.1-1.0); TOTAL PROTEIN 6.9 g/dL (6.4-8.2)
[2018-03-27 03:22] LABS: ALBUMIN 3.3 g/dL (3.4-5.0); CALCIUM 8.9 mg/dL (8.5-10.1); CREATININE 0.9 mg/dL (0.6-1.3); TOTAL BILIRUBIN 0.6 mg/dL (<0.1-1.0); TOTAL PROTEIN 6.5 g/dL (6.4-8.2)
--- NOTE | 2018-03-27 06:16 | NUR ---
PATIENT PROGRESSING TOWARDS GOALS. NO ACUTE HEMODYNAMIC CHANGES OVERNIGHT. RIGHT GROIN SITE INTACT, DENIES PAIN, NO HEMATOMA. PULSES 2+ UPPER AND LOWER EXTREMITIES. ADEQUATE CIRCULATION. PT ABLE TO SLEEP THROUGHOUT THE NIGHT DENIED CHEST PAIN. VITAL SIGNS WNL. BED TO LOWEST POSITION. CALL LIGHT IN PLACE. PT HAS NO VOICED CONCERNS AT THIS TIME.
--- NOTE | 2018-03-27 07:07 | NUR ---
RECEIVED TRANSFER ORDERS FROM CARDIOLOGY TO SEND PT TO TELE. PT WILL BE GOING TO ROOM 209.
--- NOTE | 2018-03-27 07:20 | NUR ---
GAVE REPORT TO TYLER HARRIS. PT COMPLAINING OF SHOULDER PAIN. PASSED THAT ON REPORT. PT HAS NO OTHER CONCERNS AT THIS TIME.
--- NOTE | 2018-03-27 07:50 | NUR ---
ICU TX TO RM 209 REPORT GIVEN PATIENT ARRIVED VIA BED PATIENT ORIENTED TO RM AND CALL LIGHT PATIENT DENIES PAIN
[2018-03-28] VITALS: BP 108/77
--- NOTE | 2018-03-28 02:39 | NUR ---
ASSUMED CARE OF PATIENT AT 1900 THE PATIENT REMAINS SR ON THE MONITOR O2 SAT MAINTAINED ON RA CONTINUES TO BE UP AD SHAZIA AT SHIFT START IN ROOM AMBULATING WITHOUT S/SX OF ACUTE DISTRESS MONEGASQUE 2ND LANGUAGE HOWEVER BROKEN PATIENT COMMUNICATES UNDERSTANDING AND NEEDS DURING ASSESSMENT. WHEN QUESTIONED THE PATIENT REPORTS HE HAS "POO AND PEE" TODAY WITHOUT CONCERNS HE DENIES CX PAIN OR SOA WHEN QUESTIONED ABOUT CONCERNS HE REPLIES "NO NOT YET" UPON REASSESSMENT THE PATIENT STATES HE HAS A HEADACHE ROUTINE REGIMEN CONTINUES TO BE EFFECTIVE FOR SX MANAGEMENT SAFETY INTERVENTIONS CONTINUE BED LOWERED WHEELS LOCKED CALL LIGHT IN REACH SIDE RAILS UP X2 WILL CONTINUE TO MONITOR
[2018-03-28 04:00] VITALS: BP 103/70
[2018-03-28 08:10] VITALS: BP 101/74
[2018-03-28 12:00] VITALS: BP 94/59
[2018-03-28] MEDS ORDERED: CARVEDILOL3.125 MG PO (12:16)
[2018-03-28] MEDS ORDERED: LISINOPRIL2.5 MG PO (12:16)
[2018-03-28] MEDS ORDERED: IMDUR 30 MG TAB30 M1 PO (12:16)
[2018-03-28] MEDS ORDERED: PLAVIX 75 MG TA75 M1 PO (12:16)
[2018-03-28] MEDS ORDERED: PREDNISONE 10 M10 MG PO (12:16)
[2018-03-28] MEDS ORDERED: LIPITOR80 MG PO (12:16)
[2018-03-28] MEDS ORDERED: LASIX 20 MG TAB20 MG PO (12:18)
--- NOTE | 2018-03-28 12:20 | NUR ---
ASSUMED CARE OF PT AT 0845. REPORT RECEIVED. PT RESTING IN BED. LANGUAGE BARRIER NOTED. PT UNDERSTANDS SOME HUNGARIAN. PT A&0X4. DENIES ANY PAIN OR SHORTNESS OF BREATH AT THIS TIME. PT TRACING ST ON THE PET WALKER. ON RA SAT 98%. RIGHT GROIN CATH SITE IS C/D/I WITH BANDAID PLACED THIS AM. PT UP AD SHAZIA IN ROOM. PROBABLE DISCHARGE HOME THIS EVENING. PT STATES HIS FRIEND CAN COME GET HIM AROUND 5 OR 6PM. AM ASSESSMENT CHARTED. MEDICATIONS PER DEC. PT REPOSITIONS SELF. HOURLY ROUNDING OBSERVED. BED IN LOW POSITION. CALL LIGHT WITHIN REACH. WILL CONTINUE PLAN OF CARE.
[2018-03-28 16:47] VITALS: BP 93/45
[2018-03-28 18:59] VITALS: BP 93/45
--- NOTE | 2018-03-28 19:09 | NUR ---
DISCHARGE ORDERS RECEIVED. DISCHARGE INSTRUCTIONS, CARE NOTES, SCRIPTS AND FOLLOW UP APPT GIVEN TO PT. PT AND PT FAMILY COMMUNICATE UNDERSTANDING OF DISCHARGE TEACHING. IV AND BIOSTATISTICS PROFESSOR REMOVED. PT DISCHARGED WITH ALL BELONGINGS AND PAPERWORK VIA WHEELCHAIR WITH NURSING STAFF TO FAMILY OWN PERSONAL VEHICLE.
== END 2018-03-28 19:10 | disposition home or self-care (01) | DRG 286 ==
LOC: M.ERS 01:59 → M.TBA-ER 03:00 → M.ICU 03:00 → M.2W 03-27 07:47
PROVIDERS: Emergency Medicine; Internal Medicine; Internal Medicine Pulmonary Disease; ADMIT Internal Medicine
PROC: B2111ZZ Fluoroscopy of Multiple Coronary Arteries using Low Osmolar Contrast (ICD-10-PCS; principal; 2018-03-26)
PROC: 5A09357 Assistance with Respiratory Ventilation, Less than 24 Consecutive Hours, Continuous Positive Airway Pressure (ICD-10-PCS; principal; 2018-03-26)
PROC: 4A023N7 Measurement of Cardiac Sampling and Pressure, Left Heart, Percutaneous Approach (ICD-10-PCS; principal; 2018-03-26)
DX: T82.858A Stenosis of other vascular prosthetic devices, implants and grafts, initial encounter (principal); I50.23 Acute on chronic systolic (congestive) heart failure; J96.20 Acute and chronic respiratory failure, unspecified whether with hypoxia or hypercapnia; I10 Essential (primary) hypertension; E78.5 Hyperlipidemia, unspecified; I25.2 Old myocardial infarction; E78.00 Pure hypercholesterolemia, unspecified; I25.119 Atherosclerotic heart disease of native coronary artery with unspecified angina pectoris; I25.5 Ischemic cardiomyopathy; I34.0 Nonrheumatic mitral (valve) insufficiency; Y83.8 Other surgical procedures as the cause of abnormal reaction of the patient, or of later complication, without mention of misadventure at the time of the procedure; Y92.89 Other specified places as the place of occurrence of the external cause; Z79.82 Long term (current) use of aspirin; Z79.899 Other long term (current) drug therapy; Z95.5 Presence of coronary angioplasty implant and graft; Z87.891 Personal history of nicotine dependence

== ENCOUNTER 2018-05-31 23:04 | Inpatient (IN) | payer OTHER ==
[~2018-05-31] VITALS: Ht 154.9 cm; Wt 65.7 kg
[~2018-05-31 23:04] MED LIST changes: +IMDUR 30 MG TAB30 M1 PO; +LASIX 20 MG TAB20 MG PO; +PREDNISONE 10 M10 MG PO
--- NOTE | 2018-05-31 23:10 | NUR ---
PT PULSELESS--CPR STARTED--SEE CODE BLUE SHEET FOR FURTHER
[2018-05-31 23:55] LABS: HEMATOCRIT 47.3 % (42.0-52.0); HEMOGLOBIN 14.3 gm/dL (14.0-18.0); MCH 29.3 pg (26.0-34.0); MCHC 30.1 g/dL (28.0-37.0); MCV 97.3 fL (80.0-100.0); MPV 8.7 fl. (7.2-11.1); NUCLEATED RBCS 0 /100WBC; PLATELET COUNT* 179 thou/uL (150-400); RBC 4.86 mil/uL (4.50-6.00); RDW-CV 16.3 % (10.5-14.5); WBC 4.1 thou/uL (4.0-11.0)
[2018-05-31 23:57] LABS: CALCIUM 8.5 mg/dL (8.5-10.1); CREATININE 1.5 mg/dL (0.6-1.3); POTASSIUM 4.1 mmol/L (3.5-5.1)
[2018-05-31 23:59] LABS: APTT 54.2 Seconds (25.0-31.3); INR 1.1; PROTIME 10.8 Seconds (9.20-11.50)
[2018-06-01] VITALS (24 sets, daily range): BP systolic 95–134; BP diastolic 59–85
[2018-06-01 00:13] LABS: URINE BILIRUBIN NEGATIVE (Negative); URINE BLOOD TRACE (Negative); URINE CLARITY CLEAR; URINE COLOR YELLOW; URINE GLUCOSE-RANDOM NEGATIVE (Negative); URINE KETONES NEGATIVE (Negative); URINE LEUKOCYTES-REFLEX NEGATIVE (Negative); URINE NITRITE-REFLEX NEGATIVE (Negative); URINE PROTEIN 1+ (Negative); URINE SPECIFIC GRAVITY 1.025 (1.005-1.030); URINE UROBILINOGEN 0.2 E.U./dl (0.2-1.0)
[2018-06-01 00:16] LABS: ALBUMIN 3.4 g/dL (3.4-5.0); CK-MB MASS 2.5 ng/mL (<0.5-3.6); TOTAL BILIRUBIN 0.3 mg/dL (<0.1-1.0); TOTAL PROTEIN 6.5 g/dL (6.4-8.2); TROPONIN-I LEVEL 0.11 ng/mL (<0.06)
[2018-06-01 00:30] LABS: BE -17.4 mmol/L (-2 to +3); HCO3 14.5 mmol/L (22.0-26.0)
[2018-06-01 00:32] LABS: pH 6.989 (7.340-7.450)
[2018-06-01 00:33] LABS: PCO2 61.9 mmHg (35.0-45.0); PO2 > 488.8 mmHg (75.0-100.0)
[2018-06-01 00:35] LABS: ABSOLUTE EOSINOPHILS 0.3 thou/uL (0.0-0.7); ABSOLUTE LYMPHOCYTES 2.5 thou/uL (0.8-5.3); ABSOLUTE MONOCYTES 0.2 thou/uL (0.0-1.2); ABSOLUTE NEUTROPHILS 1.1 thou/uL (1.6-8.1); ATYPICAL LYMPHS 2 %
[2018-06-01 00:36] LABS: ANISOCYTOSIS Occasional; PLATELET ESTIMATE ADEQUATE; TOXIC GRANULATION 1+
[2018-06-01 01:05] LABS: AMP/METHAMP Negative (Negative); BARBITURATES Negative (Negative); BENZODIAZEPINES Negative (Negative); COCAINE Negative (Negative); METHADONE Negative (Negative); OPIATES Negative (Negative); PCP Negative (Negative); THC Negative (Negative)
--- NOTE | 2018-06-01 03:00 | NUR ---
PATIENT ADM TO ICU @ 0235. RECIEVED REPORT FROM EARL BONILLA RN. INTUBATED, SEDATED, HR 64, 02 96, BP 78/35 (65), RR 11. PUPILS NON-RESPONSIVE TO LIGHT. WEAK PULSES. NO FAMILY PRESENT. OG PLACEMENT CONFIRMED BY DR. CULLEN. WILL CONSULT PULMONARY AND CARDIOLOGY. WILL CONTINUE TO MONITOR CLOSELY.
[2018-06-01 06:28] LABS: BE -5.7 mmol/L (-2 to +3); HCO3 19.9 mmol/L (22.0-26.0); PCO2 39.4 mmHg (35.0-45.0); pH 7.321 (7.340-7.450)
[2018-06-01 06:33] LABS: PO2 164.6 mmHg (75.0-100.0)
--- NOTE | 2018-06-01 07:25 | NUR ---
PATIENT SLOWLY PROGRESSING TOWARDS GOALS. VS WNL. ON VERSED GTT. PUPILS FIXED NON RESPONSIVE. UO ADEQUATE. PT HAS NEW ONSET DECORTICATE POSTURING. DR. ALVES. NEURO HAS BEEN CONSULTED. WILL CONTINUE TO MONITOR CLOSELY.
--- NOTE | 2018-06-01 08:00 | NUR ---
RESUMED CARE OF PT THIS AM. PT UNRESPONSIVE WITH SEIZURE LIKE ACTIVITY. ON VENT AND VERSED. IN RESTRAINTS. VSS. NO FAMILY AT BEDSIDE. NEURO, PULM, CARDIAC, AND WOUND CONSULTS PLACED. GOALS FOR TODAY INCLUDE REMOVING RESTRAINTS, MAINTAING VS, INCREASING RESPONSIVENESS, AND DECREASING SEIZURE LIKE ACTIVITY.
--- NOTE | 2018-06-01 10:00 | NUR ---
RESTRAINTS REMOVED FROM PT AT 0938 DUE TO PT CONDITION. PT IS UNRESPONSIVE AT THIS TIME. REMAINS ON VENT. VERSED CONTINUES FOR SEIZURE LIKE ACTIVITY.
--- NOTE | 2018-06-01 12:34 | EKG ---
[place] [address] ELECTROCARDIOGRAM REPORT Name: NIK LYNN Room: [address] IN [facility].#: [id number] Admission: 06/01/18 Attend Phys: Tree Lorenzana, Discharge: 06/09/18 Date of : 61 Report #: [id number] THIS REPORT FOR: //name// [facility] ED Test Date: 2018-05-31 Test Time: 23:33:53 Pat Name: NIK LYNN Department: Room: [facility] Gender: M Sole Rounder: YESENIA : 1965 Requested By: Hiren Pulido Order Number: [id number] MD: Marin Cortez Measurements Intervals [place] Rate: 93 P: 51 AL: 163 QRS: 11 QRSD: 114 T: 52 QT: 407 QTc: 507 Interpretive Statements Sinus rhythm Incomplete right bundle branch block Inferior infarct, old ST depr, consider ischemia, anterolateral lds Prolonged QT interval No previous ECG available for comparison Electronically Signed On 06-01-2018 12:33:53 CDT by Marin Cortez [email or web address] <ELECTRONICALLY SIGNED> By: Marin Cortez MD, [facility] 06/01/18 1233 [id number] [id number] Marin Cortez MD, [facility] /EPI
[2018-06-01 13:13] LABS: ABSOLUTE BASOPHILS 0.1 thou/uL (0.0-0.2); ABSOLUTE EOSINOPHILS 0.1 thou/uL (0.0-0.7); ABSOLUTE LYMPHOCYTES 1.2 thou/uL (0.8-5.3); ABSOLUTE MONOCYTES 1.2 thou/uL (0.0-1.2); ABSOLUTE NEUTROPHILS 9.4 thou/uL (1.6-8.1); BASOPHILS 0.7 %; EOSINOPHILS 0.6 %; HEMATOCRIT 46.3 % (42.0-52.0); HEMOGLOBIN 14.7 gm/dL (14.0-18.0); LYMPHOCYTES 10.3 %; MCHC 31.7 g/dL (28.0-37.0); MPV 8.9 fl. (7.2-11.1); NUCLEATED RBCS 0 /100WBC; PLATELET COUNT* 205 thou/uL (150-400); POLYS 78.4 %; RBC 5.06 mil/uL (4.50-6.00); RDW-CV 15.8 % (10.5-14.5)
[2018-06-01 13:15] LABS: MCV 91.5 fL (80.0-100.0)
[2018-06-01 13:49] LABS: ALBUMIN 3.9 g/dL (3.4-5.0); CALCIUM 7.9 mg/dL (8.5-10.1); CREATININE 1.1 mg/dL (0.6-1.3); POTASSIUM 5.8 mmol/L (3.5-5.1); TOTAL BILIRUBIN 0.4 mg/dL (<0.1-1.0); TOTAL PROTEIN 6.8 g/dL (6.4-8.2)
--- NOTE | 2018-06-01 14:36 | NUR ---
[facility] CONTACTED THIS SHIFT DUE TO PT GCS <5. STATES THEY WILL CONTINUE TO FOLLOW PT. IF BRAIN TESTING OR WITHDRAWALING CARE IS IN DISCUSSION, [facility] ASKS TO BE CONTACTED IMMEDIATELY.
--- NOTE | 2018-06-01 17:03 | NUR ---
PT MET SOME GOALS THIS SHIFT. RESTRAINTS WERE REMOVED PT IS UNRESPONSIVE. NEUROLOGY CONSULTED, EEG COMPLETED, AND VECURONIUM GTT STARTED WHICH HAS IMPROVED MYOCLONUS ACTIVITY. TRAIN OF FOUR Q1 CHECKS COMPLETED AND PATIENT MEETING GOAL ON MCG/KG/MIN. PULMONOLOGY AND CARDIOLOGY ALSO CONSULTED. PT HAD SEVERAL LIQUID BMS, FECAL TUBE PLACED. REMAINS ON VERSED AT 2 MG/HR PER NEUROLOGY'S RECOMMENDATIONS. REMAINS ON VENT AND REMAINS UNRESPONSIVE. REPOSITIONED Q2 TO MAINTAIN SKIN INTEGRITY AND ORAL CARE PROVIDED Q2. FEBRILE WITH TEMP RUNNING 100-102 RECTALLY THROUGHOUT SHIFT. NSR TO ST ON TELE. BP AND RESPIRATIONS STABLE. BERMAN REMAINS IN PLACE WITH ADEQUATE URINARY OUTPUT. NO FAMILY AT BEDSIDE.
[2018-06-02] VITALS (53 sets, daily range): BP systolic 113–158; BP diastolic 73–107
--- NOTE | 2018-06-02 05:12 | NUR ---
PT REMAINS ON PARALYTIC AND VERSED GTT. FIO2 TITRATED DOWN PT TOLERATING WELL O2 100, PULSES 2+ WITHOUT DOPPLER IN LOWER AND UPPER EXTREMITIES. FIBRILE (100), TACHYCARDIC, ELEVATED DIASTOLIC NOTED @ 0400. MINIMAL SECRETION FROM NG AND ET TUBE. URINE OUPUT ADEQUATE. NEW BERMAN CATH PLACED D/T LEAKAGE IN TUBING. PT RECIEVED FULL BED BATH AND LINEN CHANGE. Q2H ORAL CARE AND TURNS. HOURLY 4 POINT NEURO CHECKS. SPOKE WITH [facility] UPDATED ON PT STATUS, THEY WILL CONTINUE TO FOLLOW PT. BED TO LOWEST POSITION, 4 BED RAILS UP, NO RESTRAINTS. WILL CONTINUE TO MONITOR CLOSELY.
[2018-06-02 06:27] LABS: HEMATOCRIT 44.8 % (42.0-52.0); HEMOGLOBIN 14.6 gm/dL (14.0-18.0); MCHC 32.5 g/dL (28.0-37.0); MCV 89.2 fL (80.0-100.0); MPV 8.3 fl. (7.2-11.1); RBC 5.02 mil/uL (4.50-6.00); RDW-CV 15.7 % (10.5-14.5); WBC 14.1 thou/uL (4.0-11.0)
[2018-06-02 06:30] LABS: CALCIUM 8.3 mg/dL (8.5-10.1); CREATININE 1.4 mg/dL (0.6-1.3)
[2018-06-02 08:30] LABS: BE 2.4 mmol/L (-2 to +3); HCO3 27.5 mmol/L (22.0-26.0); PCO2 44.3 mmHg (35.0-45.0); PO2 99.3 mmHg (75.0-100.0); pH 7.411 (7.340-7.450)
--- NOTE | 2018-06-02 09:52 | EEG ---
[address] [address] EEG STUDY REPORT Name: NIK LYNN Room: [address] IN M.R.#: [id number] Admission: 06/01/18 Attend Phys: Tree Lorenzana, Discharge: 06/09/18 Date of : 61 Report #: [id number] THIS REPORT FOR: //name// CC: KIET physician/PCP Tree Lorenzana MD DATE OF SERVICE: 06/01/2018 This is a 52-year-old gentleman in the ICU at [facility]. HISTORY OF PRESENT ILLNESS: The patient is a 52-year-old man with a known cardiac history. He was unresponsive at home for 1-2 hours before he was brought to the Emergency Room. His pH on admission ABG was 6.9 with a CO2 in the low 60s. At this point, the patient has jerking movements of the face, arms and legs followed by periods of no movement at all. DESCRIPTION: Using the 10-20 electrode system. An EEG was performed at the bedside. The record consists of episodic polyspikes, which correlate with the myoclonic movements. These bursts of activity do not have any rhythmicity to them and may last for 10-20 seconds. This is then followed by a period of suppression of the record with no significant recordable background rhythm, sometimes lasting up to 20 seconds as well. IMPRESSION: This is a very abnormal adult record consistent with a burst suppression pattern. The bursts of activity correlate with the myoclonic movements. This type of recording typically carries a very poor prognosis. <ELECTRONICALLY SIGNED> By: Cheryle Velazquez DO 06/02/18 0952 1159 1210Cheryle Velazquez DO /nt
--- NOTE | 2018-06-02 10:23 | NUR ---
WOUND CARE NOTE: CONSULT RECEIVED FOR LOW ARIELA SCALE. PATIENT'S ARIELA IS 7. CARE PLAN IN PLACE. PATIENT IS ON JOSS MATTRESS. PATIENT IS VENTED AND ON PARALYTICS. ASSESSED KAIA PROMINENCES, SKIN INTACT. PINK AREA TO COCCYX, BELIEVE TO BE SCAR TISSUE. RECOMMEND CONTINUE JOSS MATTRESS BARRIER OINTMENT BID AND PRN CONTINUE USING WEDGES FOR TURNING LIMIT LAYERS OF LINEN UNDER PATIENT.
--- NOTE | 2018-06-02 10:50 | NUR ---
PER DR VELEZ (PULMONARY), ORDERS TO INCREASE VERSED DOSE TO 8MG/HR AND REPLACE K+. HE STATED HE WILL HAVE A CONVERSATION WITH DR WATT (NERUOLOGY) AND DECIDE WHETHER TO CONTINUE PARALYTIC.
--- NOTE | 2018-06-02 10:55 | NUR ---
Nutrition: Pt assessed for Ad 7. Rt forearm is red. H/o CAD, aspiration pneumonia. Admitted unresponsive, cardiac arrest. Per ICU rounds, no one has been able to get ahold of any family. Unsure POC at this time. LLikely brain . On ventilator. PICC. ABX. Labs noted. RX: lasix, insulin. On a paralytic. No nutrition yet. Also, per RN, there is " bowel" smell. Will await POC and give nutrition recs at that time. Will follow closely. Folow up 06/03/18.
[2018-06-02] MEDS ORDERED: IMDUR 30 MG TAB30 M1 PO (13:40)
[2018-06-02] MEDS ORDERED: CLOPIDOGREL75 MG PO (13:41)
[2018-06-02] MEDS ORDERED: LIPITOR80 MG PO (13:41)
[2018-06-02] MEDS ORDERED: LISINOPRIL2.5 MG PO (13:42)
[2018-06-02] MEDS ORDERED: CARVEDILOL3.125 MG PO (13:42)
[2018-06-02] MEDS ORDERED: FUROSEMIDE 20 M20 M1 PO (13:43)
[2018-06-02] MEDS ORDERED: ASPIR-LOW81 MG PO (13:44)
--- NOTE | 2018-06-02 15:30 | EKG ---
[place] [address] ELECTROCARDIOGRAM REPORT Name: NIK LYNN Room: [address] IN M.R.#: [id number] Admission: 06/01/18 Attend Phys: Tree Lorenzana, Discharge: 06/09/18 Date of : 61 Report #: [id number] THIS REPORT FOR: //name// [facility] Test Date: 2018-06-02 Test Time: 09:34:32 Pat Name: NIK LYNN Department: Room: [address] Gender: M Non Acoustic Operator: VICKIE : 1965 Requested By: Marin Cortez Order Number: [id number] Sarahi MD: Marin Cortez Measurements Intervals [place] Rate: 135 P: 50 ME: 124 QRS: 100 QRSD: 129 T: 9 QT: 307 QTc: 461 Interpretive Statements Sinus tachycardia Consider right atrial enlargement Nonspecific intraventricular conduction delay Abnormal inferior Q waves Borderline ST depression, diffuse leads Compared to ECG 05/31/2018 23:33:53 Sinus rhythm no longer present Incomplete right bundle-branch block no longer present Electronically Signed On 06-02-2018 15:30:19 CDT by Marin Cortez [email or web address] <ELECTRONICALLY SIGNED> By: Marin Cortez MD, [facility] 06/02/18 1530 0934 0934 Marin Cortez MD, [facility] /EPI
--- NOTE | 2018-06-02 15:30 | NUR ---
PATIENT'S EMPLOYER STATED HE HAS GOTTEN AHOLD OF PATIENT'S BROTHER, AND THEY ARE CURRENTLY WORKING ON GETTING HIM A PLANE TICKET TO COME HERE.
--- NOTE | 2018-06-02 17:09 | NUR ---
PATIENT STARTING TO TREMOR, EYES ROLLED BACK IN HEAD. PER PULMONARY, VERSED DOSE INCREASED TO 15 MG/HR (30 ML/HR).
--- NOTE | 2018-06-02 17:14 | NUR ---
WOUND CARE NOTE: UPON CHANGING DRESSING TO LEFT [place], NOTICED PURULENT DRAINAGE COMING FROM UNDER A BLACK ESCHAR THAT COVERED THE ONCE MOIST, RED WOUND BED. UPON PALPATION, NOTCED FLUCTUANCE AND FURTHER PURULENT DRAINAGE. NOTIFIED VASCULAR, WAS ASSESSED BY VASCULAR CASTINGS DRAFTER. PLEASE SEE WOUND CARE DOCUMENTATION UNDER PROCESS INTERVENTIONS.
--- NOTE | 2018-06-02 17:23 | NUR ---
PT HAD AN NJ IN JANUARY, WAS HERE 02/25-02/26 FOR CHEST PAIN, HERE 03/26-03/28 WITH CHF AND RESP FAILURE. PT ADMITTED 06/01, WAS INTUBATED IN THE E.D. AND REMAINS ON THE VENT. PT HAS FRIENDS IN THE AREA ONLY, PER NURSING THEY WERE ABLE TO REACH HIS BROTHER IN [place] AND HE IS SUPPOSED TO BE ON HIS WAY HERE. CASE MGT WILL CONTINUE TO FOLLOW.
--- NOTE | 2018-06-02 17:41 | NUR ---
PATIENT NOT MEETING GOALS. PATIENT OFF VECURONIUM AT 1500. AROUND 1700, PATIENT BEGAN HAVING FINE TREMORS, AT TIMES EYES OPENED AND ROLLED BACK IN HEAD. THROUGHOUT SHIFT, PUPILS INTERMITTENTLY SLUGGISH, BUT MOSTLY FIXED. DOES HAVE WEAK GAG REFLEX. NO CORNEAL OR PAIN RESPONSES NOTED THROUGHOUT SHIFT. VERSED AT 15 MG/HR PER PULMONARY REQUEST IN ATTEMPT TO CONTROL TREMORING. REMAINS TRACING SINUS TACH ON MONITOR. CENTRAL LINE PLACED TODAY FOR CVP MONITORING, WHICH HAS REMAINED 1-5. D5 1/2 NS STARTED BY PULMONARY, LASIX DISCONTINUED. FEVERS HAVE BEEN 100-102 THROUGHOUT SHIFT, ATTEMPTED TO CONTROL WITH IBUPROFEN, WHICH BRINGS DOWN SLIGHTLY AND TEMPORARILY. BLOOD PRESSURES HAVE REMAINED STABLE. TURNED Q2H HOURS TO PROMOTE SKIN INTEGRITY, HEELMEDIX BOOTS APPLIED TO BOTH FEET TO PROTECT HEELS. K+ REPLACEMENT CONTINUING. NO OTHER CHANGES NOTED.
--- NOTE | 2018-06-02 18:01 | NUR ---
PATIENT'S FRIEND IN TO SEE PATIENT. ASKED IF THEY COULD FACETIME PATIENT WITH ANOTHER FRIEND OR TAKE PICTURES TO SHOW THEM. EDUCATED THAT PATIENT IS UNABLE TO CONSENT TO THIS, SO IT IS NOT ALLOWED AT THIS TIME.
[2018-06-03] VITALS (34 sets, daily range): BP systolic 92–141; BP diastolic 57–90
[2018-06-03 04:53] LABS: HEMATOCRIT 40.9 % (42.0-52.0); HEMOGLOBIN 13.1 gm/dL (14.0-18.0); MCH 28.8 pg (26.0-34.0); MCHC 32.1 g/dL (28.0-37.0); MCV 89.6 fL (80.0-100.0); NUCLEATED RBCS 0 /100WBC; PLATELET COUNT* 155 thou/uL (150-400); RBC 4.57 mil/uL (4.50-6.00); RDW-CV 15.4 % (10.5-14.5); WBC 11.8 thou/uL (4.0-11.0)
[2018-06-03 05:08] LABS: ALBUMIN 3.2 g/dL (3.4-5.0); CALCIUM 8.2 mg/dL (8.5-10.1); CREATININE 0.8 mg/dL (0.6-1.3); MAGNESIUM 1.9 mg/dL (1.8-2.4); POTASSIUM 4.3 mmol/L (3.5-5.1); TOTAL BILIRUBIN 0.8 mg/dL (<0.1-1.0); TOTAL PROTEIN 6.4 g/dL (6.4-8.2)
[2018-06-03 05:11] LABS: PHOSPHORUS* 2.6 mg/dL (2.5-4.9); TROPONIN-I LEVEL 0.09 ng/mL (<0.06)
[2018-06-03 05:51] LABS: ABSOLUTE LYMPHOCYTES 1.1 thou/uL (0.8-5.3); ABSOLUTE MONOCYTES 0.7 thou/uL (0.0-1.2); PLATELET ESTIMATE ADEQUATE
[2018-06-03 05:52] LABS: ANISOCYTOSIS 1+; POIKILOCYTOSIS 1+
--- NOTE | 2018-06-03 06:50 | NUR ---
PATIENT EXPERIENCING INTERMITENT INTERVALS OF MUSCLE CONTRACTIONS IN UPPER EXTREMITIES. HAD TWO EPISODES OF UNCONTROLABLE JERKY MOVEMENTS GAVE VERSED IV PUSH TWICE SEEMED TO CALM THEM. PT FEVERS LABILE. NO ACUTE HEMODYNAMIC CHANGES OVER NIGHT. REMAINS ON VERSED MAX. FECAL TUBE IN PLACE NO LEAKAGE. URINE OUPUT ADEQUATE. SKIN INTACT RECIEVED Q2H TURNS. SPOKE WITH HIS BOSS HARRY MICHELLE LAST NIGHT HE SAID EARLIEST PT BROTHER CAN GET HERE IS SATURDAY. SPOKE WITH [facility] UPDATED ON PT CURRENT CARE OF PLAN. BED TO LOWEST POSITION. ALL BED RAILS UP. WILL CONTINUE TO MONITOR.
[2018-06-03 09:13] LABS: BE -4.4 mmol/L (-2 to +3); HCO3 21.2 mmol/L (22.0-26.0); PCO2 41.1 mmHg (35.0-45.0); pH 7.331 (7.340-7.450)
[2018-06-03 09:16] LABS: PO2 128.9 mmHg (75.0-100.0)
--- NOTE | 2018-06-03 11:15 | CON ---
[address] [address] CONSULTATION Name: NIK LYNN Room: [address] IN M.R.#: [id number] Admission: 06/01/18 Attend Phys: Tree Lorenzana, Discharge: 06/09/18 Date of : 61 Report #: [id number] THIS REPORT FOR: //name// CC: KIET physician/PCP Tree Lorenzana DATE OF SERVICE: 06/01/2018 HISTORY OF PRESENT ILLNESS: The patient is a 52-year-old male who I was asked to see in the hospital today after he developed respiratory failure. The history is obtained from the Emergency Room report. No family is available. The patient is currently intubated and comatose. Apparently, the patient speaks very little Kinyarwanda. He was brought to the Emergency Room last night by private vehicle. Apparently, he became unresponsive. When he was brought to the Emergency Room, he developed bradycardia and hypotensive. He was intubated for respiratory failure. Cardiology consultation was requested. During the night, the patient developed posturing. I was asked to see him for further evaluation and treatment. PAST MEDICAL HISTORY: Cannot be obtained. SOCIAL HISTORY: Cannot be obtained. FAMILY HISTORY: Cannot be obtained. REVIEW OF SYSTEMS: Cannot be obtained. PHYSICAL EXAMINATION: GENERAL: Reveals a middle-aged male who is unresponsive on the ventilator. VITAL SIGNS: Currently, he has a blood pressure of 110/60s, pulse 60. He is afebrile. HEENT: He is anicteric, conjunctiva pink. Mucous membranes appear moist. NECK: Veins do not appear distended. CHEST: Showed coarse breath sounds bilaterally. HEART: Regular rate and rhythm. ABDOMEN: Soft. EXTREMITIES: Had no edema. SKIN: Cool and dry. NEUROLOGIC: He is unresponsive. LABORATORY DATA: ECG showed sinus rhythm, incomplete right bundle-branch block, possible previous inferior infarction, left ventricular hypertrophy, repolarization changes. His x-rays on admission, he had a CT scan of the head that showed no acute abnormality. Portable chest x-[place] [address] CONSULTATION Name: NIK LYNN Room: [address] IN ..#: [id number] Admission: 06/01/18 Attend Phys: Tree Lorenzana, Discharge: 06/09/18 Date of : 61 Report #: [id number] LABORATORY DATA: BUN 18, creatinine 1.5, glucose 290. His troponin is 0.1. BNP 522. Drug screen negative. White blood cell count 4.1, hemoglobin 14.3. IMPRESSION AND RECOMMENDATIONS: 1. Pulmonary edema. Recommend Lasix. We will check echocardiogram. 2. Respiratory failure. The patient intubated. 3. Bradycardia. The patient now in sinus rhythm. 4. Hypotension. The patient off pressors at this time. <ELECTRONICALLY SIGNED> By: Marin Cortez MD, [facility] 06/03/18 1115 0753 1411Dkarrie Cortez MD, [facility] /nt
--- NOTE | 2018-06-03 11:53 | NUR ---
PATIENT CARE ASSUMED AT 0700. PATIENT CONTINUING TO TREMOR ON 15 MG/HR VERSED INFUSION WITH OCCASIONAL EXTRA 3MG BOLUSES PER EMAR. DR WATT ON THE FLOOR TO SEE PATIENT, STATED HE WOULD PREFER PROPOFOL OVER VERSED TO STOP TREMORING, BUT WOULD LIKE IT CLEARED THROUGH DR. VELEZ. DR VELEZ ORDERED PROPOFOL PER NEUROLOGY RECCOMENDATIONS, BUT WISHES TO LEAVE THE VERSED ON, AND TITRATE DOWN. PATIENT CURRENTLY ON 6MG/HR VERSED AND 10 MCG/KG/MIN PROPOFOL. HAS NOW STOPPED TREMORING. TRACING SINUS TACH ON MAINTENANCE FITTER WITH RATE FROM 99-101. REMAINS FEBRILE. ICE PACKS IN PLACE TO ARM PITS AND FEET, FAN ON PATIENT, AND IBUPROFEN GIVEN TO PATIENT PER EMAR. TEMPERATURE NOW 102.0. BLOOD PRESSURES TOLERATING SEDATION. CURRENTLY 115/74 (87). O2 SAT 100% ON FIO2 OF 30% ON VENTILATOR. TURNING Q2H TO PROMOTE SKIN INTEGRITY, NO WOUNDS NOTED AT THIS TIME ON SKIN CHECK. HEEL-MEDIX BOOTS IN PLACE. WILL CONTINUE WITH CURRENT CARE PLAN.
--- NOTE | 2018-06-03 13:59 | NUR ---
Nutrition: PROPOFOL IS CURRENTLY PROVIDING 509 KCALS PER DAY. RECOMMEND GLUCERNA 1.2 @ 40mL/HR, WHILE PROPOFOL IS GOING AT CURRENT RATE. ONCE PROPFOL IS D/C'D, MAY INCREASE TF TO GOAL RATE 55mL/HR, MEEETING 100% OF NEEDS. SEE RD ASSESSMENT FORM FOR DETAILS.
--- NOTE | 2018-06-03 15:15 | NUR ---
ICU ROUNDING: XOCHITL SPOKE TO THE RN IN-CHARGE OF THE PATIENT AND SHE INFORMS THAT THE PATIENT MAY START TUBE FEEDING. DR FINE CONSULTED (I.D.) DR LIU. PATIENT'S BROTHER WILL BE HERE SATURDAY. CM WILL REMAIN AVIALABLE TO ASSIST AND FOLLOW NEEDED.
--- NOTE | 2018-06-03 15:54 | NUR ---
PATIENT NOT PROGRESSING TOWARDS GOALS. STILL USING ICE PACKS, IBUPROFEN, AND FAN TO ATTEMPT TO CONTROL TEMPERATURE. NEUROFUNCTION REMAINS POOR, CONTROLLED TREMORS FOR SHORT PERIODS OF TIME. CURRENTLY ON PROPOFOL AND VERSED MAX WITH MUSCLE RIGIDITY. PRN VERSED BOLUS GIVEN AT THIS TIME.
--- NOTE | 2018-06-03 16:44 | 2DMMODE ---
[place] [address] 2 D/M-MODE ECHOCARDIOGRAM Name: ROSALIO LYNNFRANCESCA Room: [address] IN [facility]#: [id number] Admission: 06/01/18 Attend Phys: Tree Milian Discharge: 06/09/18 Date of : 61 Date of Service: 06/03/18 1644 Report #: [id number] THIS REPORT FOR: //name// APPROVED REPORT Study performed: 06/03/2018 14:43:37 EXAM: Comprehensive 2D, Doppler, and color-flow Echocardiogram Patient Location: In-Patient Room #: 004 Status: routine BSA: 1.63 HR: 96 bpm BP: 102/63 mmHg Rhythm: NSR Other Information Study Quality: Good Indications Acute MA Pulmonary edema, cardiac arrest 2D Dimensions LVEF(%): 43.33 (>50%) IVSd: 11.25 (7-11mm) LVOT Diam: 17.70 (18-24mm) LVDd: 55.10 mm PWd: 10.73 (7-11mm) Ascending Ao: 30.73 (22-36mm) LVDs: 43.18 (25-40mm) Aortic Root: 30.98 mm Mittal's LVEF: 43.33 % Volumes Left Atrial Volume (Systole) LA ESV Index: 42.10 mL/m2 Aortic Valve AoV Peak Rashard.: 1.51 m/s AO Peak Gr.: 9.07 mmHg LVOT Max P.78 mmHg AO Mean Gr.: 5.25 mmHg LVOT Mean P.03 mmHg LVOT Max V: 1.09 m/s AO V2 VTI: 23.45 cm LVOT Mean V: 0.64 m/s KAYLIN (VTI): 1.81 cm2 LVOT V1 VTI: 17.28 [place] [address] 2 D/M-MODE ECHOCARDIOGRAM Name: NIK LYNN Room: [address] IN M.R.#: [id number] Admission: 06/01/18 Attend Phys: Tree Milian Discharge: 06/09/18 Date of : 61 Date of Service: 06/03/18 1644 Report #: [id number] E/A Ratio: 1.47 MV Decel. Time: 178.19 ms MV E Max Rashard.: 1.18 m/s MV PHT: 51.67 ms MVA (PHT): 4.26 cm2 TDI E/Lateral E': 6.94 E/Medial E': 10.73 Medial E' Rashard.: 0.11 m/s Lateral E' Rashard.: 0.17 m/s Pulmonary Valve PV Peak Rashard.: 1.19 m/s PV Peak Gr.: 5.71 mmHg Left Ventricle The left ventricle is normal size. Regional wall motion abnormalities are noted.Inferior wall is severely hypokinetic.Lateral wall is mildly hypokinetic. There is normal left ventricular wall thickness. Left ventricular systolic function is mildly decreased. No left ventricle thrombus noted on this study. LVEF is 40-45%. This study is not technically sufficient to allow evaluation of the LV diastolic function. Right Ventricle The right ventricle is normal size. The right ventricular systolic function is normal. Atria Left atrium is moderately dilated. The right atrium size is normal. Aortic Valve The aortic valve is normal in structure. No aortic regurgitation is present. There is no aortic valvular stenosis. Mitral Valve The mitral valve is normal in structure. Mild mitral regurgitation. No evidence of mitral valve stenosis. Tricuspid Valve The tricuspid valve is normal in structure. Trace tricuspid regurgitation. Unable to assess PA pressure. Pulmonic Valve The pulmonary valve is normal in structure. There is no pulmon[place] [address] 2 D/M-MODE ECHOCARDIOGRAM Name: LEAHNIK Room: [address] IN M.R.#: [id number] Admission: 06/01/18 Attend Phys: Tree Milian Discharge: 06/09/18 Date of : 61 Date of Service: 06/03/18 1644 Report #: [id number] Great Vessels The aortic root is normal in size. IVC is normal in size and collapses with >50% inspiration Pericardium There is no pericardial effusion. <Conclusion> LVEF is 40-45%. Regional wall motion abnormalities are noted.Inferior wall is severely hypokinetic.Lateral wall is mildly hypokinetic. Left atrium is moderately dilated. There is no aortic valvular stenosis. No aortic regurgitation is present. Mild mitral regurgitation. No evidence of mitral valve stenosis. There is no pericardial effusion. <ELECTRONICALLY SIGNED> By: Dean Schuler MD, FACC 06/03/18 1644 1644 164 Dean Schuler MD, FACC /INF
[2018-06-04] VITALS (33 sets, daily range): BP systolic 81–124; BP diastolic 41–79
[2018-06-04 05:17] LABS: ABSOLUTE EOSINOPHILS 0.1 thou/uL (0.0-0.7); ABSOLUTE LYMPHOCYTES 1.2 thou/uL (0.8-5.3); ABSOLUTE MONOCYTES 0.9 thou/uL (0.0-1.2); ABSOLUTE NEUTROPHILS 6.6 thou/uL (1.6-8.1); BASOPHILS 0.5 %; EOSINOPHILS 0.7 %; HEMATOCRIT 37.4 % (42.0-52.0); HEMOGLOBIN 12.1 gm/dL (14.0-18.0); LYMPHOCYTES 14.1 %; MCH 29.1 pg (26.0-34.0); MCHC 32.4 g/dL (28.0-37.0); MCV 89.9 fL (80.0-100.0); MONOCYTES 9.9 %; MPV 7.9 fl. (7.2-11.1); NUCLEATED RBCS 0 /100WBC; PLATELET COUNT* 137 thou/uL (150-400); POLYS 74.8 %; RBC 4.16 mil/uL (4.50-6.00); RDW-CV 15.1 % (10.5-14.5); WBC 8.8 thou/uL (4.0-11.0)
[2018-06-04 05:43] LABS: TROPONIN-I LEVEL 0.08 ng/mL (<0.06)
[2018-06-04 06:11] LABS: ALBUMIN 2.8 g/dL (3.4-5.0); CREATININE 0.7 mg/dL (0.6-1.3); MAGNESIUM 1.9 mg/dL (1.8-2.4); POTASSIUM 3.7 mmol/L (3.5-5.1); TOTAL BILIRUBIN 0.4 mg/dL (<0.1-1.0); TOTAL PROTEIN 5.8 g/dL (6.4-8.2)
[2018-06-04 08:22] LABS: BE 2.3 mmol/L (-2 to +3); HCO3 27.1 mmol/L (22.0-26.0); PCO2 43.2 mmHg (35.0-45.0); PO2 123.9 mmHg (75.0-100.0); pH 7.416 (7.340-7.450)
--- NOTE | 2018-06-04 10:00 | NUR ---
RN RESUMED CARE OF PT THIS AM. THIS AM PT BP CONTINUED TO STEADILY DROP AND PT REQUIRED LEVOPHED FOR SHORT PERIOD THIS AM. REMAINS VENTILATED AND UNRESPONSIVE TO ANY/ALL STIMULI. GOALS FOR TODAY INCLUDE ATTEMPT SEDATION VACATION, WEAN SEDATION APPROPRIATE, AND MAINTAIN HEMODYNAMIC STABILITY.
--- NOTE | 2018-06-04 10:30 | NUR ---
PT REMAINS ON VENT, NO SEDATION, STARTED ON LEVO THIS MORNING. NO FRIENDS IN THE ROOM AT THIS TIME, BROTHER IS SUPPOSED TO BE HERE FROM OUT OF TOWN TOMORROW. CASE MGT WILL CONTINUE TO FOLLOW.
--- NOTE | 2018-06-04 11:35 | CON ---
[address] [address] CONSULTATION Name: NIK LYNN Room: [address] IN M.R.#: [id number] Admission: 06/01/18 Attend Phys: Tree Lorenzana, Discharge: 06/09/18 Date of : 61 Report #: [id number] THIS REPORT FOR: //name// CC: KIET physician/PCP Tree Lorenzana DATE OF SERVICE: 06/03/2018 INFECTIOUS DISEASE CONSULTATION ATTENDING PHYSICIAN: Yohan Aparicio M.D. REASON FOR EVALUATION: Fevers. The patient experienced cardiopulmonary arrest. HISTORY OF PRESENT ILLNESS: Chart reviewed, patient examined. This is a 52-year-old gentleman who was found unresponsive, the details of history are quite incomplete. Apparently at some point, he did lose a pulse. He experienced cardiopulmonary arrest. He was resuscitated. He is currently in Intensive Care Unit on mechanical ventilatory support. At this point, he is not on pressors, he does have known history of atherosclerotic coronary artery disease and perhaps some underlying COPD as well. He did experience some seizures which apparently have resolved. Per Dr. Woody, appears to be slightly improved. He has had pretty continuous temperature elevations shortly since he was admitted in the 101-102 range. Chest x-ray does not suggest a significant pneumonitis, there is some mild medial basilar atelectasis or infiltrate. He was empirically placed on antimicrobial therapy with piperacillin/tazobactam. At this point, he is not responsive although he is on high-dose sedation. ALLERGIES: NONE KNOWN. CURRENT MEDICATIONS: Include pantoprazole, midazolam, ibuprofen, Zosyn. PAST MEDICAL HISTORY: He has known atherosclerotic coronary artery disease with acute myocardial infarction. SOCIAL HISTORY: Apparently, history of smoking. FAMILY HISTORY: Noncontributory. REVIEW OF SYSTEMS: Not obtainable. PHYSICAL EXAMINATION: GENERAL: He is lying supine, he is intubated, multiple ET tubes in place. He is not responsive. VITAL SIGNS: Temperature 100.2, T-max overnight 103.1; pulse 94; [place] [address] CONSULTATION Name: NIK LYNN Room: [address]#: [id number] Admission: 06/01/18 Attend Phys: Tree Lorenzana, Discharge: 06/09/18 Date of : 61 Report #: [id number]; blood pressure is 102/67; saturations 100% on FiO2 of 30%. SKIN: Warm, dry. HEENT: Difficult to assess. NECK: Seemingly is supple. LUNGS: A few scattered coarse breath sounds. HEART: Regular. Borderline tachycardic. I do not appreciate a murmur. ABDOMEN: Soft. There are no peritoneal signs. GENITOURINARY: Deferred. RECTAL: Deferred. LABORATORY DATA: His most recent ABGs: pH 7.331, pCO2 of 41.1, pO2 of 128.9, it was on 30%. Initial ABG: pH 6.989, pCO2 of 61.9, pO2 of greater than 488.8. Initially, urinalysis was unremarkable. Electrolytes: Sodium 141, potassium 4.1, chloride 104, bicarbonate is 21, anion gap of 16, BUN and creatinine 18 and 1.5, glucose was 290. AST of 154, ALT of 178. Total bilirubin of 0.3, albumin 3.4, total protein 6.5. Estimated GFR of 49. CBC: White count 4.1, H and H 14.3 and 47.3, platelets of 179. CT of the head, no acute intracranial process on admission. Chest x-ray, no acute process. Previous x-ray showed diffuse bilateral pulmonary opacities suggestive of pulmonary edema. CRP is less than 2.0. TSH of 0.226. Troponin 0.09. ASSESSMENT: Febrile illness in a patient with cardiopulmonary arrest, it is difficult to sort out. Certainly, there is a wide opinion about degree of anoxic type injury. There was a more extended period of arrest when first noted. We will continue empiric therapy. I did discuss with Dr. Aparicio and Dr. Woody, I think it's risk-benefit ratio favors empiric treatment, Zosyn is a reasonable option in this setting and we will have to follow clinically. Certainly, his limiting factor tends to be neurological in terms of predictable recovery. We will try to wean off support as allowed. <ELECTRONICALLY SIGNED> By: Chandu Lew MD 06/04/18 1135 1008 [id number] Lew MD /nt
--- NOTE | 2018-06-04 15:21 | CON ---
[address] [address] CONSULTATION Name: NIK LYNN Room: [address] IN M.R.#: [id number] Admission: 06/01/18 Attend Phys: Tree Lorenzana, Discharge: 06/09/18 Date of : 61 Report #: [id number] THIS REPORT FOR: //name// CC: KIET physician/PCP Tree Lorenzana REASON FOR CONSULTATION: Respiratory failure. HISTORY OF PRESENT ILLNESS: Please note the patient had 2 account numbers in the computer system. I was able to look at the previous admission that was on 03/26/2018. The patient was on the vent, nonresponsive, did not participate in the history. He presented to the hospital after he was brought into the ER with being unresponsive and foaming through the mouth, and per the record, he underwent a cardiac arrest in the ER. CPR was started. Return of spontaneous circulation was achieved, and he was ventilated and brought into the ICU. Reviewing his medical records from previous hospitalization indicated he had history of coronary artery disease, previous [facility]. He was admitted here on 03/26/2018 with coronary artery disease and underwent cardiac catheterization when he presented with chest pain at that time. Also, during that hospitalization on March, he had respiratory failure. He underwent CT angiogram, did not show PE, but showed pulmonary edema and he required BiPAP briefly. He had history of smoking. Apparently, he quit sometime earlier this year, had a presumed COPD. The patient currently on the vent and per RN, when he came in, he was unresponsive; however, early in the morning around 6:00, he noticed some seizure-like activity, and he was started on Versed to control the seizures. The patient has some twitching movement during my visit, although he is unresponsive. His eyes rolled back. REVIEW OF SYSTEMS: Unobtainable at this point due to the patient's condition. PAST MEDICAL HISTORY: Coronary artery disease as mentioned above, presumed COPD, previous history of smoking. HOME MEDICATIONS: Per the last record indicated Coreg, Plavix, lisinopril, aspirin, atorvastatin. SOCIAL HISTORY: He is an ex-smoker, does not drink alcohol. Also, per the previous records. FAMILY HISTORY: Not obtainable. REVIEW OF SYSTEMS: Unobtainable due to the patient's condition. PAST SURGICAL HISTORY: Per the record, he had cardiac catheterization twice this year. PHYSICAL EXAMINATION: [place] [address] CONSULTATION Name: NIK LYNN Room: [address]#: [id number] Admission: 06/01/18 Attend Phys: Tree Lorenzana, Discharge: 06/09/18 Date of : 61 Report #: [id number] VITAL SIGNS: On examination, he is on the ventilator, O2 saturation more than 90%. He is off vasopressors, blood pressure of 95/59, breathing 16 times a minute with the vent, O2 saturation 100%. GENERAL: He was intubated, on Versed, nonresponsive. Twitching movement was noted. HEENT: Eyes rolled back. External ear looked normal. ET tube in place with moist mucous membrane. Nasal cavity patent. NECK: No palpable lymph node. Trachea central. CHEST: Air movement heard bilaterally with prolonged expiratory phase. No wheezes. HEART: Faint systolic murmur at left sternal border. ABDOMEN: Soft, nontender, positive bowel sounds. No masses felt. LOWER EXTREMITIES: No edema noted. No calf tenderness. SKIN: Normal for the age and race. NEUROLOGIC: Nonresponsive. Pupils sluggish reaction to light, some twitching movement was noted. LYMPHATICS: No palpable lymph nodes. His CT head that was done upon hospitalization did not show acute process. His chest x-ray is suggestive for pulmonary edema with bilateral infiltrates. ET tube in good position. His ABGs, he had 2 sets of ABGs initially 6.98/61. However, the repeat ABG this morning,7.32/39/164, and this was done on assist control ventilation, tidal volume of 500 and FiO2 of 40%. His creatinine is 1.5, with a potassium 4.1, sodium 141. Troponin was 0.1. BNP slightly elevated. Urine drug screen is negative. IMPRESSION: 1. Status post cardiac arrest. 2. Acute respiratory failure on the vent. 3. Suspected anoxic brain injury. 4. Presumed chronic obstructive pulmonary disease. 5. Known history of coronary artery disease, status post stent in the past. At this point, we will continue the patient on the current vent settings. He is on 40% FIO2. He will be on a scheduled nebulization treatment. No active wheezes. We will hold off on the steroids, although he had history of smoking and presumed COPD. Cardiology was consulted for further evaluation. His clinical picture on exam suspicious for significant anoxic brain injury. Neurology was consulted to evaluate the patient. We will continue the current care. We will do a followup chest x-ray and ABGs. CONDITION: Guarded. PROGNOSIS: Guarded. Discussed with RN. [address] [address] CONSULTATION Name: NIK LYNN Room: [address]#: [id number] Admission: 06/01/18 Attend Phys: Tree Lorenzana, Discharge: 06/09/18 Date of : 61 Report #: [id number] Thank you for the consult. <ELECTRONICALLY SIGNED> By: Butch Ceron MD 06/04/18 1521 0825 [id number] Salamanca MD /[place]
--- NOTE | 2018-06-04 17:49 | NUR ---
I HAVE CHECKED THIS RN CHARTING AND AGREE WITH ALL DOCUMENTATION. SEE EDITS IF ANY. JEVON HARRIS
--- NOTE | 2018-06-04 18:41 | NUR ---
PT ABLE TO PROGRESS TO SOME GOALS THIS SHIFT. SEDATION VACATION COMPLETED THIS AM AND PATIENT NO LONGER REQUIRING SEDATION. REMAINS OFF SEDATION AND ON VENT THROUGHOUT REST OF SHIFT. EEG COMPLETED THIS SHIFT. PT BP LOW THIS AM AND REQUIRING LEVO FOR 1-2 HOURS AND WAS THEN WEANED OFF AND SINCE HAS MAINTAINED A MAP >60. BERMAN REMAINS IN PLACE WITH 300 CC OF DARK NOELLE URINE THIS SHIFT. AFEBRILE, NSR ON TEACHER HOME THERAPY, AND 02 MAINTAINED ON VENT. PT BROTHER EXPECTED TO ARRIVE TOMORROW, FROM [place]. NO FAMILY AT BEDSIDE AT THIS TIME.
--- NOTE | 2018-06-04 21:07 | NUR ---
AT 2054 PT VOMITING TUBE FEEDING. COPIUS AMOUNT OF TUBE FEEDING FROM RIGHT NARE. TUBE FEEDING STOPPED. DEEP ORAL AND NASAL TRACHIAL SUCTIONING DONE TO CLEAR AIRWAY. DR FINE NOTIFIED. RECIEVED ORDER TO STOP TUBE FEEDING AND DEEP SUCTION PT'S THROAT AND NOSE.
[2018-06-05] VITALS (24 sets, daily range): BP systolic 89–156; BP diastolic 54–100
[2018-06-05 04:17] LABS: ABSOLUTE MONOCYTES 0.8 thou/uL (0.0-1.2); ABSOLUTE NEUTROPHILS 8.4 thou/uL (1.6-8.1); BASOPHILS 0.3 %; EOSINOPHILS 0.1 %; HEMOGLOBIN 12.6 gm/dL (14.0-18.0); LYMPHOCYTES 10.1 %; MCH 29.1 pg (26.0-34.0); MCHC 33.1 g/dL (28.0-37.0); MCV 87.9 fL (80.0-100.0); MONOCYTES 7.4 %; MPV 7.7 fl. (7.2-11.1); NUCLEATED RBCS 0 /100WBC; PLATELET COUNT* 167 thou/uL (150-400); POLYS 82.1 %; RBC 4.32 mil/uL (4.50-6.00); RDW-CV 15.1 % (10.5-14.5); WBC 10.2 thou/uL (4.0-11.0)
[2018-06-05 04:28] LABS: PHOSPHORUS* 3.6 mg/dL (2.5-4.9)
[2018-06-05 04:35] LABS: ALBUMIN 2.5 g/dL (3.4-5.0); CALCIUM 8.5 mg/dL (8.5-10.1); CREATININE 0.6 mg/dL (0.6-1.3); POTASSIUM 4.2 mmol/L (3.5-5.1); TOTAL BILIRUBIN 0.6 mg/dL (<0.1-1.0); TOTAL PROTEIN 6.5 g/dL (6.4-8.2)
[2018-06-05 04:42] LABS: PREALBUMIN 19.6 mg/dL (18.0-35.7)
--- NOTE | 2018-06-05 06:07 | NUR ---
PT'S TUBE FEEDING STOPPED EARLY IN SHIFT AFTER COPIOUS AMOUNT OF TUBE FEEDING CAME OUT MOUTH AND NOSE. DEEP ORAL AND NASAL TRACHEAL SUCTION DONE MULTIPLE TIMES WTIH PARKER BLOODY SECRETIONS. NO SEDATION ON DURING SHIFT. NO PRN SEDATION GIVEN DURING SHIFT. PT TACHYCARDIC WITH TMAX 99.7 DURING SHIFT. PT OVERBREATHING VENT WITH RESPIRATIONS 18-22. PT APPEARS TO YAWN AND COUGH AT TIMES. DECORTICATE POSTURING AT TIMES. WILL CONTINUE TO MONITOR CLOSELY.
--- NOTE | 2018-06-05 08:00 | NUR ---
RN RESUMED CARE OF PT THIS AM. PT REMAINS VENTILATED. POSTURING WITH LARGE AMOUNTS OF RED DRAINAGE COMING FROM THE NOSE AND MOUTH. DR. FINE AT BEDSIDE AT THIS TIME. NG NOTICED TO BE OUT OF PLACE AND REMOVED PER DR. FINE. KEEP TF ON HOLD FOR NOW. ON NO SEDATION, WILL START PROPROFOL. VSS. AFEBRILE. PT BROTHER TO ARRIVE IN TOWN TODAY. GOALS FOR TODAY INCLUDE MAINTAING HEMODYNAMIC STABILITY AND DISCUSSING GOALS OF CARE WITH PT FAMILY.
[2018-06-05 09:05] LABS: BE 1.1 mmol/L (-2 to +3); HCO3 25.6 mmol/L (22.0-26.0); PCO2 40.4 mmHg (35.0-45.0); PO2 115.1 mmHg (75.0-100.0)
--- NOTE | 2018-06-05 11:26 | NUR ---
REMAINS ON VENT. PER NURSING, PROPOFOL HAD TO BE TURNED BACK ON DUE TO MYOCLONIC ACTIVITY. PT.DOES HAVE GAG REFLEX. BROTHER FROM [place] HAS NOT ARRIVED YET,TODAY.
--- NOTE | 2018-06-05 18:04 | NUR ---
PT UNABLE TO PROGRESS TOWARDS GOALS THIS SHIFT. REMAINS VENTILATED AND WITHOUT PURPOSEFUL MOVEMENT. PT WAS POSTURING AND COUGHING/GAGING THIS AM, WHICH RESOLVED WITH PROPOFOL WHICH WAS LATER DC AND VERSED IVP WERE STARTED. PUPILS WERE NON-REACTIVE THIS AM AND NOON ASSESSMENT, BUT REACTIVE THIS PM. CORNEAL REFLEX REMAINS UNRESPONSIVE. BERMAN AND FECAL TUBE REMAIN IN PLACE. NEW WOUND FOUND THIS AM - BLISTER ON THE LEFT POSTERIOR THIGH. PICTURES TAKEN AND DOCUMENTED IN PAPER AND COMPUTER CHART PER PROTOCOL. NG REMAINS OUT AND TF REMAINS ON HOLD PER MD. VSS - TEMP CONTINUES TO FLUNCTUATE BETWEEN 98-100 DEGREES. NO FAMILY AT BEDSIDE THIS SHIFT.
[2018-06-06] VITALS (23 sets, daily range): BP systolic 102–151; BP diastolic 63–96
[2018-06-06 04:52] LABS: ABSOLUTE LYMPHOCYTES 1.1 thou/uL (0.8-5.3); ABSOLUTE MONOCYTES 0.9 thou/uL (0.0-1.2); ABSOLUTE NEUTROPHILS 7.3 thou/uL (1.6-8.1); BASOPHILS 0.2 %; EOSINOPHILS 0.2 %; HEMATOCRIT 35.7 % (42.0-52.0); HEMOGLOBIN 11.9 gm/dL (14.0-18.0); LYMPHOCYTES 11.6 %; MCH 29.4 pg (26.0-34.0); MCHC 33.3 g/dL (28.0-37.0); MCV 88.4 fL (80.0-100.0); MONOCYTES 9.3 %; MPV 7.4 fl. (7.2-11.1); NUCLEATED RBCS 0 /100WBC; PLATELET COUNT* 175 thou/uL (150-400); POLYS 78.7 %; RBC 4.04 mil/uL (4.50-6.00); WBC 9.3 thou/uL (4.0-11.0)
[2018-06-06 05:17] LABS: PREALBUMIN 18.8 mg/dL (18.0-35.7)
[2018-06-06 05:32] LABS: ALBUMIN 2.4 g/dL (3.4-5.0); CALCIUM 8.4 mg/dL (8.5-10.1); CREATININE 0.7 mg/dL (0.6-1.3); POTASSIUM 3.8 mmol/L (3.5-5.1); TOTAL BILIRUBIN 0.5 mg/dL (<0.1-1.0); TOTAL PROTEIN 6.3 g/dL (6.4-8.2)
--- NOTE | 2018-06-06 09:03 | NUR ---
PATIENT REMAINS ON VENT NSR ON MONITOR. APPEARS COMFORTABLE.
--- NOTE | 2018-06-06 19:55 | NUR ---
PATIENT REMAINS ON VENT CL DRESSING CHANGED. PATENT SUCTIONED REPEATEDLY.
--- NOTE | 2018-06-06 21:58 | NUR ---
RECIEVED REPORT AND ASSUMED CARE OF PT AT 1900. PT INTUBATED ON VENTILATOR, NO SEDATION ON BOARD. PT HAS POSITIVE GAG AND COUGH REFLEX. PT DOES NOT RESPOND TO VERBAL OR PAINFUL STIMULI. PT RECIEVING LACTATED RINGERS INFUSING AT 50 ML/HR. VITAL SIGNS WITHIN NORMAL LIMITS. WILL CONTINUE TO MONITOR.
--- NOTE | 2018-06-06 22:46 | NUR ---
MULTIPLE FAMILY MEMBERS IN WAITING ROOM TO SEE PT. YOUNG BOY ATTEMPTING TO TRANSLATE. UNSURE WHO IS RESPONSIBLE CONSTITUTION PARTY. NO EVIDENT SPOUSE. INFORMED BOY AND OLDER MAN THAT PT HAS SUFFERED BRAIN AND THEY NEED TO SPEAK TO NEUROLOGIST REGARDING WITHDRAWING MEDICAL CARE.
[2018-06-07] VITALS (21 sets, daily range): BP systolic 97–156; BP diastolic 58–103
[2018-06-07 02:33] LABS: HEMATOCRIT 35.4 % (42.0-52.0); HEMOGLOBIN 11.5 gm/dL (14.0-18.0); MCH 28.8 pg (26.0-34.0); MCHC 32.6 g/dL (28.0-37.0); MCV 88.6 fL (80.0-100.0); MPV 7.4 fl. (7.2-11.1); RDW-CV 15.1 % (10.5-14.5); WBC 11.6 thou/uL (4.0-11.0)
[2018-06-07 02:44] LABS: ALBUMIN 2.5 g/dL (3.4-5.0); CALCIUM 8.6 mg/dL (8.5-10.1); CREATININE 0.7 mg/dL (0.6-1.3); MAGNESIUM 2.2 mg/dL (1.8-2.4); POTASSIUM 3.8 mmol/L (3.5-5.1); TOTAL BILIRUBIN 0.6 mg/dL (<0.1-1.0); TOTAL PROTEIN 6.4 g/dL (6.4-8.2)
--- NOTE | 2018-06-07 08:13 | NUR ---
07 ASSUMED CARE OF PATIENT. PLEASE SEE DOCUMENTED ASSESSMENT. PT IS UNRESTRAINED ON VENTILATOR. UNABLE TO DO WEANING ASSESSMENT AT THIS TIME.
--- NOTE | 2018-06-07 13:36 | NUR ---
CVP DISCONTINUED PER ORDER DR BRANCH
--- NOTE | 2018-06-07 13:36 | NUR ---
1200 FLEXISEAL REMOVED NO OUTPUT.
--- NOTE | 2018-06-07 15:41 | NUR ---
1315 PATIENT NOW AWAKE AND TAKING PO MEDS. FED AND HELPED TO TURN. RANGE OF MOTION TO LIMBS. PATIENT IS ABLE TO HELP TURN.
--- NOTE | 2018-06-07 16:31 | NUR ---
DR ROCK TO SEE PATIENT. DR ROCK CALLED ROBERTH JORDAN FOR PT. WHO WILL SPEAK WITH BROTHER. DR ROCK LEFT VOICE MAIL FOR JULIAN. PT HAS SOME RESPONSE TO PAIN AND OVERBREATHES VENTILATOR AT TIMES
--- NOTE | 2018-06-07 18:37 | NUR ---
GOALS HAVE CHANGED FOR THIS PATIENT. FAMILY WISHES COMFORT CARE. PT IS DNR. PAGE IN TO DR VELEZ. CALL MADE TO MTN.
--- NOTE | 2018-06-07 18:48 | NUR ---
MTN NOTIFIED. OK TO WITHDRAW CARE AND NOTIFY OF TIME OF CARDIAC
--- NOTE | 2018-06-07 19:47 | NUR ---
PT'S FAMILY GATHERED AND REQUESTED THIS WIRE STITCHER MACHINE TO WITHDRAW CARE. ALL FAMILY IN ROOM. RT NOTIFIED. PT GIVEN PRN MORPHINE AND ATIVAN IV. MONITOR ON CHANGED TO PRIVACY MODE. PT EXTUBATED AT 2030. COPIUS SECRETIONS FROM MOUTH AND NOSE. SUCTIONING DONE TO CLEAR ORAL AND NASAL PASSAGES. PT HAS LOUD SONOROUS RESPIRATIONS. INFORMED FAMILY THAT LOUD SNORING OCCURS WITH BRAIN . FAMILY MEMBER INTERPRETED TO REST OF FAMILY. MULTIPLE CHAIRS BROUGHT TO ROOM FOR ALL FAMILY PRESENT. INFORMED FAMILY THAT PT MAY TAKE MINUTES TO HOURS TO PASS DUT TO PT'S YOUNG AGE AND STRONG HEART. ICU CARD WITH ICU PHONE # GIVEN TO FAMILY THAT LEFT. OTHERS STILL PRESENT.
[2018-06-08] VITALS: BP 117/84
[2018-06-08 02:00] VITALS: BP 134/90
--- NOTE | 2018-06-08 05:48 | NUR ---
AT 0500 MULTIPLE FAMILY MEMBERS HERE TO SEE PT BEFORE RETURNIING TO [place]. FAMILY MARINE ARCHITECT CALLED ON PHONE AND EXPLAINED THAT PT'S BROTHER WOULD STAY AND SIGN RELEASE FOR BODY AT TIME OF . PT'S WALLET RELEASED TO PT'S BROTHER AND NEICE. PT'S BROTHER TO STAY AND SIGN FOR BODY AT TIME OF .
[2018-06-08 07:13] VITALS: BP 125/73
--- NOTE | 2018-06-08 12:54 | NUR ---
ASSUMED CARE OF PATIENT AT 0700. PATIENT ON COMFORT CARE. UNRESPONSIVE, BUT DOES HAVE MYOCLONIC JERKING WHEN STIMULATED. BITING ON TONGUE, ATTEMPTS TO GIVE MEDICATIONS TO RELAX BITE. NEUROLOGY RECCOMENDED TO ATTEMPT TO PLACE BITE BLOCK, UNABLE TO GET PATIENT TO RELAX ENOUGH TO PLACE BITE BLOCK. PATIENT TRANSFERING TO [facility] ROOM 110. REPORT GIVEN TO STEVEN HOWELL. AWAITING TRANSPORT.
--- NOTE | 2018-06-08 13:34 | NUR ---
PATIENT LEFT UNIT BY BED WITH RN AND MARZIPAN MOLDER AT 1330.
[2018-06-08 13:35] VITALS: BP 120/78
--- NOTE | 2018-06-08 13:35 | NUR ---
ASSUMED CARE OF PATIENT AT THIS TIME. PATIENT SETTLED TO ROOM. PATIENT IS NON-RESPONSIVE. VITAL SIGNS STABLE DOCUMENTED. WILL CONTINUE TO MONITOR.
--- NOTE | 2018-06-08 13:46 | NUR ---
BROTHER LEFT EXTRA CONTACT NAMES. WASTE RECYCLER: DAINA KELLEY & GERONIMO (FRIEND) , WHO CAN TRANSLATE.
--- NOTE | 2018-06-08 18:11 | NUR ---
PATIENT RESTING IN BED ON COMFORT CARE. PATIENT IS NON-RESPONIVE. PATIENT GIVEN MORPHINE AND ATIVAN X 1 FOR COMFORT. FAMILY AT BEDSIDE. PATIENT REPOSITIONED IN BED. BERMAN IN PLACE WITH DARK YELLOW URINE OUTPUT. CENTRAL LINE SALINE LOCKED. WILL CONTINUE TO MONITOR.
[2018-06-08 20:30] VITALS: BP 135/78
--- NOTE | 2018-06-09 06:44 | NUR ---
PT REMAINS UNRESPONSIVE. LABORED BREATHING, COARSE BREATH SOUNDS. HAS FOAMY PINK ORAL SECRETIONS, ORDER RECEIVED FOR ATROPINE DROPS TO BE GIVEN. L NECK CENTRAL LINE SL, IV PHENERGAN GIVEN X1 OVERNIGHT. FREQUENT ORAL CARE AND SUCTIONING THIS SHIFT DUE TO SECRETIONS. BERMAN WITH 1000ML OUTPUT DARK YELLOW URINE. PT TURNED AND REPOSITIONED Q2 HOURS FOR SKIN CARE. MORPHINE GIVEN X1 FOR COMFORT. NPO. DNR. FAMILY HERE AT HS BUT HOME OVERNIGHT, TO RETURN THIS MORNING THEY STATED. REMAINS ON COMFORT CARE.
[2018-06-09 07:45] VITALS: BP 122/78
--- NOTE | 2018-06-09 10:30 | NUR ---
PT UNRESPONSIVE DURING ASSESSMENT @ 0745. FAMILY CALLED @ 0830 TO CHECK ON PT. NURSE WENT INTO ROOM AND FOUND PATIENT NOT BREATHING. LISTENED FOR 1 MINUTE AND CONFIRMED BY SECONDARY RN. MTN NOTIFIED. PT ICED AT THIS TIME. TIME OF 0834. FAMILY AT BEDSIDE.
--- NOTE | 2018-06-09 17:33 | EEG ---
[address] [address] EEG STUDY REPORT Name: NIK LYNN Room: [address] IN M.R.#: [id number] Admission: 06/01/18 Attend Phys: Tree Lorenzana, Discharge: 06/09/18 Date of : 61 Report #: [id number] THIS REPORT FOR: //name// CC: FAM physician/PCP Tree Lorenzana DATE OF SERVICE: 06/02/2018 This patient is being evaluated as a followup of the burst suppression EEG. EEG was done by placing the electrode by standard 10-20 system of electrode placement. Both referential and sequential montages were used for recording. Background activity in this patient's EEG is about 10 Hz and 30 microvolts. Photic stimulation was unremarkable. Multiple attempts were made to see if it is alpha coma. The best we can tell the background activity is not reactive to the eye opening. Photic stimulation was unremarkable. IMPRESSION: This patient's EEG does not show any active epileptiform activity or burst suppression pattern anymore. It shows alpha activity, but whether it is a true alpha activity or alpha coma is not clear. We will recommend repeated EEG in this patient. Thank you very much for this referral. <ELECTRONICALLY SIGNED> By: Preston Woody MD 06/09/18 1733 1720 1734Pfelipa Woody MD /[place]
--- NOTE | 2018-06-09 17:33 | EEG ---
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 The patient's EEG was done by placing the electrodes by standard 10-20 system of electrode placement. Both referential and sequential montages were used for recording. Background activity in this patient's EEG is up to about 8 Hz and 30 microvolt. It is much lower voltage than before. Photic stimulation is unremarkable. The patient is comatose. IMPRESSION: This patient's EEG is abnormal and is consistent with encephalopathy. The patient's EEG has deteriorated since last time. Repeat EEG will be necessary to see if the patient's EEG continues to deteriorate or show any improvement. Deterioration may be just the process, which takes little while for the EEG changes to show up. Clinical correlation is recommended. No active epileptiform activity has been present in this patient's EEG. <ELECTRONICALLY SIGNED> By: Preston Woody MD 06/09/18 1733 1101 [id number] usama Williamson
== END 2018-06-09 08:34 | DRG 207 ==
LOC: M.ERS 23:04 → EDBD 23:04 → M.ICU 06-01 00:59 → M.ORTHSURG 06-01 00:59 → M.TBA-ER 06-01 00:59 → M.ICU 06-01 02:56 → M.ORTHSURG 06-08 13:38
PROVIDERS: Emergency Medicine Emergency Medical Services; Internal Medicine; Internal Medicine Cardiovascular Disease; Internal Medicine Critical Care Medicine; Internal Medicine Pulmonary Disease; ADMIT Family Medicine
PROC: 5A1955Z Respiratory Ventilation, Greater than 96 Consecutive Hours (ICD-10-PCS; principal; 2018-06-01)
PROC: 0BH17EZ Insertion of Endotracheal Airway into Trachea, Via Natural or Artificial Opening (ICD-10-PCS; principal; 2018-06-01)
PROC: B548ZZA Ultrasonography of Superior Vena Cava, Guidance (ICD-10-PCS; 2018-06-02)
PROC: 02HV33Z Insertion of Infusion Device into Superior Vena Cava, Percutaneous Approach (ICD-10-PCS; 2018-06-02)
DX: J69.0 Pneumonitis due to inhalation of food and vomit (principal); J96.00 Acute respiratory failure, unspecified whether with hypoxia or hypercapnia; R65.11 Systemic inflammatory response syndrome (SIRS) of non-infectious origin with acute organ dysfunction; G93.1 Anoxic brain damage, not elsewhere classified; I42.9 Cardiomyopathy, unspecified; R57.9 Shock, unspecified; I11.0 Hypertensive heart disease with heart failure; G25.3 Myoclonus; R00.1 Bradycardia, unspecified; I46.9 Cardiac arrest, cause unspecified; I25.10 Atherosclerotic heart disease of native coronary artery without angina pectoris; J44.9 Chronic obstructive pulmonary disease, unspecified; I25.2 Old myocardial infarction; Z87.891 Personal history of nicotine dependence; Z95.5 Presence of coronary angioplasty implant and graft